=== PATIENT | female | born 1965 | race American Indian/Alaskan Native ===

== ENCOUNTER 2017-10-16 12:19 | Inpatient (IN) | payer MEDICARE, MEDICAID ==
--- NOTE | 2017-10-16 13:27 | C.PDOC ---
History Of Present Illness 52 y/o female presents to the ED requesting detox for heroin. She insuflates a bundle (10 bags) per day when she can afford it. She also admits that she smokes cocaine, marijuana, and 1 pack of cigarettes every 2 weeks. Patient has a past medical history of bipolar disorder and schizophrenia, and reports compliance with taking her Risperdal and Seroquel. She denies any suicidal ideation, homicidal ideation, or hallucinations. Time Seen by Provider: 10/16/17 13:18 Chief Complaint (Nursing): Substance Abuse History Per: Patient History/Exam Limitations: no limitations Onset/Duration Of Symptoms: Days Current Symptoms Are (Timing): Still Present Past Medical History Reviewed: Historical Data, Nursing Documentation, Vital Signs Vital Signs: Last Vital Signs Temp 98.8 F 10/16/17 16:32 Pulse 78 10/16/17 16:32 Resp 18 10/16/17 16:32 BP 150/88 10/16/17 16:32 Pulse Ox 100 10/16/17 16:32 - Medical History PMH: Bipolar Disorder, HTN, Schizophrenia Surgical History: Family History: States: No Known Family Hx - Social History Hx Alcohol Use: Yes Hx Substance Use: Yes - Immunization History Hx Tetanus Toxoid Vaccination: No Hx Influenza Vaccination: No Hx Pneumococcal Vaccination: No Review Of Systems Except As Marked, All Systems Reviewed And Found Negative. Constitutional: Positive for: Other (substance abuse). Negative for: Fever, Chills, Weakness, Malaise Eyes: Negative for: Vision Change, Conjunctivae Inflammation ENT: Negative for: Nose Pain Cardiovascular: Negative for: Chest Pain, Palpitations, Orthopnea, Paroxysmal Noc. Dyspnea Respiratory: Negative for: Shortness of Breath Gastrointestinal: Negative for: Nausea, Vomiting, Abdominal Pain Genitourinary: Negative for: Dysuria, Frequency, Incontinence Musculoskeletal: Negative for: Neck Pain, Shoulder Pain Neurological: Negative for: Weakness, Seizures, Dizziness, Other (tremors) Psych: Negative for: Suicidal ideation (or homicidal), Other (hallucinations) Physical Exam - Physical Exam Appears: Non-toxic, No Acute Distress Skin: Normal Color, Warm, Dry Head: Atraumatic, Normacephalic Eye(s): bilateral: Normal Inspection, PERRL, EOMI Oral Mucosa: Moist Tongue: Normal Appearing Lips: Normal Appearing Teeth: No Normal Dentition (poor dentition) Neck: Normal ROM, Supple Chest: Symmetrical Cardiovascular: Rhythm Regular, No Murmur Respiratory: Normal Breath Sounds, No Accessory Muscle Use Gastrointestinal/Abdominal: Soft, No Tenderness, No Distention Back: Normal Inspection Extremity: Bilateral: Atraumatic, Normal Color And Temperature, Normal ROM Neurological/Psych: Oriented x3, Normal Speech ED Course And Treatment - Laboratory Results Result Diagrams: 10/16/17 13:29 10/16/17 13:29 O2 Sat by Pulse Oximetry: 98 (RA) Pulse Ox Interpretation: Normal Medical Decision Making Medical Decision Making: Initial Plan: Patient was prescreened for detox. Ordered blood work and urine. Labs reviewed: U tox shows (+) opiates and cannibinoids Disposition Counseled Patient/Family Regarding: Diagnosis - Disposition Disposition: HOSPITALIZED Disposition Time: 16:38 Condition: GOOD - Clinical Impression Clinical Impression: Drug dependence - Scribe Statement The provider has reviewed the documentation as recorded by the Scribe (Sarah Sidhu) Provider Attestation: All medical record entries made by the Scribe were at my direction and personally dictated by me. I have reviewed the chart and agree that the record accurately reflects my personal performance of the history, physical exam, medical decision making, and the department course for this patient. I have also personally directed, reviewed, and agree with the discharge instructions and disposition.
[2017-10-16 13:33] LABS: HEMOGLOBIN 12.2 g/dL (11.0-16.0); MEAN CELL VOLUME 93.3 fL (81.0-99.0); MEAN CORPUSCULAR HEMOGLOBIN 31.9 pg (27.0-31.0); MEAN CORPUSCULAR HGB CONC 34.2 g/dL (33.0-37.0); MEAN PLATELET VOLUME 7.9 fL (7.2-11.7); RBC 3.83 Mil/uL (3.80-5.20); RED CELL DISTRIBUTION WIDTH 13.6 % (11.5-14.5); WHITE BLOOD COUNT 5.8 K/uL (4.8-10.8)
[2017-10-16 13:39] LABS: SQUAMOUS EPITHIAL 1 /hpf (0-5); URINE BACTERIA RARE (<OCC); URINE BILIRUBIN NEGATIVE (NEGATIVE); URINE BLOOD NEGATIVE (NEGATIVE); URINE CLARITY Clear (Clear); URINE COLOR Yellow (YELLOW); URINE GLUCOSE (UA) NORMAL (Normal); URINE LEUKOCYTE ESTERASE NEG Leu/uL (Negative); URINE PROTEIN NEGATIVE (NEGATIVE)
[2017-10-16 13:45] LABS: ALB/GLOB RATIO 1.1 (1.0-2.1); ALBUMIN 3.8 g/dL (3.5-5.0); ALT/SGPT 20 U/L (9-52); AST/SGOT 22 U/L (14-36); BLOOD UREA NITROGEN 15 mg/dL (7-17); CALCIUM 9.1 mg/dl (8.6-10.4); GFR AFRICAN-AMERICAN > 60; GFR NON-AFRICAN AMERICAN > 60
[2017-10-16 14:05] LABS: BARBITURATES, UR NEGATIVE (NEGATIVE); BENZODIAZEPINES, UR NEGATIVE (NEGATIVE); PHENCYCLIDINE, UR NEGATIVE (NEGATIVE)
[2017-10-16 14:48] LABS: OPIATES, UR POSITIVE (NEGATIVE)
--- NOTE | 2017-10-16 16:30 | PCM.BM ---
<Jw Feliz - Last Filed: 10/16/17 16:28> Treatment Plan Problems - Problems identified on initial assessmt potential for opiate withdrawal Date Initiated: 10/16/17 Time Initiated: 16:29 Status: Active Treatment assets and liabiliti Patient Assests: cooperative, ADL independent, cognitively intact Patient Liabilities: substance abuse, medical problems - Milieu Protocol Maintain good personal hygiene: daily Encourage regular showers, daily Remind patient to perform daily oral care, daily Assist patient to perform ADL's Conduct patient checks and document Observation sheet: Q15 minutes Maintain personal safety: every shift Educate patient to report safety concerns to staff, every shift Monitor environment for contraband/sharps Medication safety: Monitor for expected outcome, potential side effects: every shift, Assess barriers to learning: every shift, Assess readiness for medication education: every shift <Jose Juan Hernandez - Last Filed: 10/17/17 22:09> - Diagnosis (1) Opioid use disorder, severe, dependence Status: Acute Interventions: 10/17/17 22:09 * Assess 7x/week regarding severity of withdrawal * Educate regarding risks, benefits, side effects and alternatives of medications * Use Motivational Interviewing for abstinence * Use CBT for relapse prevention * Medication management for withdrawal symptoms * Encourage medication assisted treatment *
[2017-10-16] MEDS ORDERED: Aluminum Hydroxide/Magnesium Hydroxide Susp (30 mL) PO PRN (17:35)
[2017-10-17] MEDS ORDERED: Buprenorphine Hydrochloride 2 mg SL ONE ×2 (12:15→13:00)
--- NOTE | 2017-10-17 12:27 | PCM.PSYCH ---
Initial Psychiatric Evaluation - Initial Psychiatric Evaluation Type of Admission: Voluntary Legal Status: Capacity Chief Complaint (in patient's own words): "I need help again" History of Present Illness and Precipitating Events: The patient is seen, chart reviewed and case discussed. This is a 52-year-old -[place] female, , has 10 children but one . She is on SSI and lives with friends. The patient is using 10 bags of heroin intranasally and she started 20 years ago ago. She also smokes marijuana and smokes cigarettes. She was in detox and rehabilitation about 20 years ago so this is her first treatment recently. [place] [facility] [place] and thus she only used for a short time , this time. However, she still has withdrawal symptoms. Past psych history: She was diagnosed with bipolar disorder and takes Risperdal , Seroquel for sleep. She has had multiple admissions, but again, they were all many years ago, until this last admission. She says she was depressed but did not attempt suicide. Currently, she has no manic or psychotic symptoms and she is free of suicidal or homicidal ideation. Family psych history: Unknown Medical history: Hypertension and asthma. Current Medications: Active Medications Generic Name Dose Route Start Last Admin Trade Name Freq PRN Reason Stop Dose Admin Al Hydrox/Mg Hydrox/Simethicone 30 ml 10/16/17 17:35 Maalox 30 Ml PO TID PRN Indigestion / Heartburn Buprenorphine HCl 4 mg 10/17/17 13:00 Subutex SL 10/17/17 13:01 ONCE ONE Clonidine HCl 0.1 mg 10/17/17 11:13 10/17/17 12:11 Catapres PO 0.1 mg Q4H PRN Administration COWS Score More or Equal to 5 Hydroxyzine HCl 25 mg 10/16/17 17:38 Atarax PO Q4H PRN Anxiety Ibuprofen 400 mg 10/16/17 17:38 Motrin Tab PO Q4H PRN Pain, moderate (4-7) Loperamide HCl 2 mg 10/16/17 17:35 Imodium PO Q8 PRN Diarrhea Ondansetron HCl 4 mg 10/16/17 17:35 Zofran Tab PO Q8 PRN Nausea/Vomiting Quetiapine Fumarate 50 mg 10/16/17 22:00 10/16/17 21:25 Seroquel PO 50 mg HS ELLY Administration Trazodone HCl 50 mg 10/16/17 17:39 Desyrel PO HS PRN Insomnia Past Psychiatric History - Past Psychiatric History Previous Treatment History: Inpatient Pertinent Medical Hx (Current Medical&Sleep Prob, Allergies): Allergies Allergy/AdvReac Type Severity Reaction Status Date / Time Penicillins Allergy Intermediate URTICARIA Verified 10/16/17 12:29 Hydroxyzine Pamoate 50 mg PO DAILY 10/16/17 Quetiapine Fumarate [Seroquel] 50 mg PO DAILY 10/16/17 Risperidone 2 mg PO DAILY 10/16/17 cloNIDine [Catapres] 0.3 mg PO TID 10/16/17 Review of Systems - Psychiatric Psychiatric: Abnormal Sleep Pattern, Anxiety, Difficulty Concentrating. absent : Hallucinations, Homicidal Ideation, Paranoia, Suicidal Ideation Mental Status Examination - Personal Presentation Personal Presentation: Looks older than stated age - Affect Affect: Constricted - Motor Activity Motor Activity: Calm - Reliability in Providing Information Reliability in Providing Information: Good - Speech Speech: Organized - Mood Mood: Anxious - Formal Thought Process Formal Thought Process: No Impairment - Cognitive Functions Orientation: Person, Place, Situation, Time Sensorium: Alert Attention/Concentration: Attentive Estimate of Intelligence: Average Judgement: Intact, as evidence by: Insight regarding need for hospitalization Memory: Recent intact, as evidence by: Ability to recall events of the day, Remote intact, as evidenced by: Abilit to recall sig. life events - Risk Risk: Withdrawal, Diminished functioning - Strength & Assets Inventory Strength & Assets Inventory: Cooperative - Limitations Limitations: Other DSM 5 DX - DSM 5 DSM 5 Diagnosis: Opioid withdrawal Opioid use disorder, severe Bipolar disorder type I Cannabis use disorder, moderate Tobacco use disorder, severe Hypertension Asthma - Recommended/Plan of Treatment Treatment Recommendations and Plan of Treatment: Taper with subutex Risperdal 2 mg for bipolar d/o maintenance Norvasc for HTN Consult if needed As needed medications All risks, benefits and alternatives of the meds discussed, and the pt agreed and understood. Attend groups and activities Supportive therapy and psychoeducation MD for abstinence CBT for relapse prevention Encourage MAT Refer to rehab or IOP, and self-help groups Smoking cessation with MD Nicotine patch if needed 34 min Projected ELOS: 3 days Prognosis: good - Smoking Cessation Smoking Cessation Initiated: Yes
[2017-10-18] MEDS: guaiFENesin DM 200 mg-20 mg/10 ml UD PO PRN ×4 (08:05→21:23)
[2017-10-18] MEDS: Benzocaine/Menthol (Cepacol) Lozenge PO PRN ×3 (08:06→18:20)
--- NOTE | 2017-10-18 08:55 | PCM.PYCHPN ---
Psychiatric Progress Note - Psychiatric Progress Note Patient seen today, length of contact: 17 min Patient Chief Complaint: "I am better" Problems Identified/Issues Discussed: The pt is seen, chart reviewed, case discussed with staff. The pt is compliant with medications and reports no side-effects. Symptoms are improving but needs more time to stabilize. After care discussed, support and psychoeducation given. She agrees to go to t a rehab, she is very excited and happy about that. Medication Change: Yes (detox changes daily) Medical Record Reviewed: Yes Mental Status Examination - Cognitive Function Orientation: Person, Place, Situation, Time Memory: Impaired Attention: WNL Concentration: Poor Association: WNL Fund of Knowledge: Poor - Mood Mood: Anxious - Affect Affect: Constricted - Speech Speech: Appropriate - Formal Thought Process Formal Thought Process: No Impairment - Suicidal Ideation Suicidal Ideation: No - Homicidal Ideation Homicidal Ideation: No Goal/Treatment Plan - Goal/Treatment Plan Need for Continued Stay: Discharge may exacerbated symptoms, Severe functional impairment Progress Toward Problem(s) and Goals/Treatment Plan: Taper with subutex Risperdal 2 mg for bipolar d/o maintenance Norvasc for HTN Consult if needed As needed medications All risks, benefits and alternatives of the meds discussed, and the pt agreed and understood. Attend groups and activities Supportive therapy and psychoeducation NC for abstinence CBT for relapse prevention Encourage MAT Refer to rehab or IOP, and self-help groups Smoking cessation with NC Nicotine patch if needed
[2017-10-18] MEDS ORDERED: Buprenorphine Hydrochloride 2 mg SL ONE (10:00)
--- NOTE | 2017-10-18 12:52 | RAD ---
HISTORY: rehab COMPARISON: No prior. TECHNIQUE: Chest PA and lateral FINDINGS: LUNGS: No active pulmonary disease. PLEURA: No significant pleural effusion identified. No pneumothorax apparent. CARDIOVASCULAR: Normal. OSSEOUS STRUCTURES: No significant abnormalities. VISUALIZED UPPER ABDOMEN: Normal. OTHER FINDINGS: None. IMPRESSION: No acute cardiopulmonary disease appreciated.
[2017-10-19] MEDS: guaiFENesin DM 200 mg-20 mg/10 ml UD PO PRN (08:27)
[2017-10-19] MEDS: Benzocaine/Menthol (Cepacol) Lozenge PO PRN (08:28)
--- NOTE | 2017-10-19 08:38 | PCM.PYCHDC ---
Mental Status Examination - Mental Status Examination Orientation: Person, Place, Situation, Time Memory: Impaired Mood: Anxious Affect: Constricted Speech: Slurred Attention: WNL Concentration: Poor Association: WNL Fund of Knowledge: Poor Formal Thought Process: No Impairment Suicidal Ideation: No Current Homicidal Ideation?: No Discharge Summary - Discharge Note Reason for Hospitalization: Opioid detox Consultations:: List each consultation separately and include: 1. Reason for request. 2. Findings. 3. Follow-up Summary of Hospital Course include:: 1. Description of specific treatment plan utilized for patients during their course of treatmen. 2. Summarize the time- course for resolution of acute symptoms and/or regressed behaviors. 3. Describe issues identified and worked on during hospitalization. 4. Describe medication utilized. 5. Describe medical problems identified and treated. 6. Reassessment of suicide risk Summary of Hospital Course: The patient is seen, chart reviewed and case discussed. On admission: This is a 52-year-old -[place] female, , has 10 children but one . She is on SSI and lives with friends. The patient is using 10 bags of heroin intranasally and she started 20 years ago ago. She also smokes marijuana and smokes cigarettes. She was in detox and rehabilitation about 20 years ago so this is her first treatment recently. She wasn't [facility] [place] reasons and thus she only used for a short time , this time. However, she still has withdrawal symptoms. Past psych history: She was diagnosed with bipolar disorder and takes Risperdal , Seroquel for sleep. She has had multiple admissions, but again, they were all many years ago, until this last admission. She says she was depressed but did not attempt suicide. Currently, she has no manic or psychotic symptoms and she is free of suicidal or homicidal ideation. Family psych history: Unknown Medical history: Hypertension and asthma. Hospital course: The pt was admitted and started on treatment with psychotherapy, support, psychoeducation and medications. MD and CBT used. The pt attended groups and activities, as well as milieu therapy. All the risks and benefits of medications are discussed and the patient understood and agreed. The pt improved with the treatments provided. After care discussed with the patient. She will go to [facility] rehab in [place] - Final Diagnosis (DSM 5) Condition upon Discharge: GOOD DSM 5: Opioid withdrawal Opioid use disorder, severe Bipolar disorder type I Cannabis use disorder, moderate Tobacco use disorder, severe Hypertension Asthma Disposition: REHAB FACILITY/REHAB UNIT Follow-up Treatment Plan: Continue below medications after discharge. (Meds entered twice due to an EMR glitch. She only got one set of 30-day supply) Follow after care plan as discussed. Use relapse prevention skills Return to ER or call 911 if suicidal, homicidal or symptoms relapse. Stay away from stress, alcohol and drugs. See primary doctor regularly and get labs. Prescriptions/Medication Reconciliation: amLODIPine [Norvasc] 5 mg PO DAILY #30 tab amLODIPine [Norvasc] 5 mg PO DAILY #30 tab risperiDONE [RisperDAL Tab] 2 mg PO HS #30 tab risperiDONE [RisperDAL Tab] 2 mg PO HS #30 tab traZODone [Desyrel] 100 mg PO HS PRN #30 tab PRN Reason: Insomnia traZODone [Desyrel] 100 mg PO HS #30 tab
[2017-10-19] MEDS ORDERED: Buprenorphine Hydrochloride 2 mg SL ONE (10:00)
[2017-10-19 12:56] VITALS: BP 139/83; PULSE 87; RESP 20; TEMP 98.1
[2017-10-19 13:16] VITALS: O2SAT 97
== END 2017-10-19 15:10 | DRG 895 ==
LOC: C.ER 12:19 → C.7D 15:58
PROVIDERS: ADMIT Psychiatry & Neurology Psychiatry; ATTEND Psychiatry & Neurology Psychiatry
PROC: HZ2ZZZZ Detoxification Services for Substance Abuse Treatment (ICD-10-PCS; principal; 2017-10-16)
PROC: HZ46ZZZ Group Counseling for Substance Abuse Treatment, Psychoeducation (ICD-10-PCS; 2017-10-16)
DX: F11.23 Opioid dependence with withdrawal (principal); F12.20 Cannabis dependence, uncomplicated; F14.90 Cocaine use, unspecified, uncomplicated; F17.210 Nicotine dependence, cigarettes, uncomplicated; F20.9 Schizophrenia, unspecified; F31.9 Bipolar disorder, unspecified; I10 Essential (primary) hypertension; J45.909 Unspecified asthma, uncomplicated; Z79.899 Other long term (current) drug therapy

== ENCOUNTER 2017-10-25 18:15 | Inpatient (IN) | payer MEDICARE, MEDICAID ==
--- NOTE | 2017-10-25 19:21 | C.PDOC ---
History Of Present Illness <Korina Brown - Last Filed: 10/25/17 23:10> <Candi Oconnor - Last Filed: 10/25/17 23:36> 52 y/o female with PMH bipolar and schizophrenia presents to the ED requesting detox for heroin, last use this morning. She also admits that she smokes marijuana and cigarettes. "If i cant have detox, I want to stay in psych." Recent admission for detox two weeks ago. She denies any suicidal ideation, homicidal ideation, or hallucinations. (Korina Brown) History Per: Patient History/Exam Limitations: no limitations Onset/Duration Of Symptoms: Persistent Current Symptoms Are (Timing): Still Present <Korina Brown - Last Filed: 10/25/17 23:10> <Candi Oconnor - Last Filed: 10/25/17 23:36> Time Seen by Provider: 10/25/17 19:13 Chief Complaint (Nursing): Substance Abuse Past Medical History - Medical History PMH: Asthma, Bipolar Disorder, HTN, Schizophrenia Denies: HIV Surgical History: Family History: States: Unknown Family Hx - Social History Hx Alcohol Use: Yes Hx Substance Use: No - Immunization History Hx Tetanus Toxoid Vaccination: No Hx Influenza Vaccination: No Hx Pneumococcal Vaccination: No <KevinKorina - Last Filed: 10/25/17 23:10> Vital Signs: Last Vital Signs Temp 99.1 F 10/25/17 23:00 Pulse 76 10/25/17 23:00 Resp 20 10/25/17 23:00 BP 128/81 10/25/17 23:00 Pulse Ox 99 10/25/17 23:11 - [facility] Procedures DETOXIFICATION SERVICES FOR SUBSTANCE ABUSE TREATMENT (10/16/17) GROUP MACHINE PULLER AND LASTER FOR SUBSTANCE ABUSE TREATMENT, PSYCHOEDUCATION (10/16/17) Review Of Systems Except As Marked, All Systems Reviewed And Found Negative. <Korina Brown - Last Filed: 10/25/17 23:10> Physical Exam - Physical Exam Appears: Well, Non-toxic, No Acute Distress Skin: Normal Color, Warm, Dry Head: Atraumatic, Normacephalic Eye(s): bilateral: Normal Inspection, EOMI Nose: Normal Oral Mucosa: Moist Chest: Symmetrical Respiratory: No Accessory Muscle Use, Other (speaking in full sentences) Extremity: Bilateral: Atraumatic, Normal Color And Temperature, Normal ROM Neurological/Psych: Oriented x3, Normal Speech, Other (no focal deficits) Gait: Steady <Korina Brown - Last Filed: 10/25/17 23:10> ED Course And Treatment - Laboratory Results Result Diagrams: 10/25/17 21:00 10/25/17 21:00 O2 Sat by Pulse Oximetry: 99 (RA) Pulse Ox Interpretation: Normal Progress Note: Patient seen and evaluated by licensed master social worker, who will discuss w/ call circuit worker. contact worker lithography evaluated patient, and discussed w/ Dr. Ayala, who recommends keeping patient overnight and reevaluating in the morning. <Korina Brown - Last Filed: 10/25/17 23:10> - Laboratory Results Result Diagrams: 10/25/17 21:00 10/25/17 21:00 <Candi Oconnor - Last Filed: 10/25/17 23:36> Disposition - Disposition Disposition Time: 19:20 <Korina Brown - Last Filed: 10/25/17 23:10> Discussed With DrVenessa: Wendy Ayala Comment: accepted the patient on her service and took over the care at 11:34 PM Doctor Will See Patient In The: Hospital Counseled Patient/Family Regarding: Studies Performed, Diagnosis <Candi Oconnor - Last Filed: 10/25/17 23:36> - Disposition Disposition: HOSPITALIZED Condition: FAIR Additional Instructions: Call [phone] for bed availability. Return to ER if symptoms persist or worsen. Instructions: Opioid Use Disorder Forms: [employer] (Emirati) - Clinical Impression Clinical Impression: Major depression, Polysubstance abuse
[2017-10-25 21:15] LABS: BASO % 0.6 % (0.0-2.0); EOS % 0.6 % (0.0-4.0); HEMOGLOBIN 12.2 g/dL (11.0-16.0); LYMPH # 1.4 K/uL (1.0-4.3); LYMPH % 30.2 % (20.0-40.0); MEAN CELL VOLUME 92.9 fL (81.0-99.0); MEAN CORPUSCULAR HGB CONC 34.5 g/dL (33.0-37.0); MEAN PLATELET VOLUME 7.8 fL (7.2-11.7); MONO # 0.5 K/uL (0.0-0.8); MONO % 11.1 % (0.0-10.0); NEUT # 2.7 K/uL (1.8-7.0); NEUT % 57.5 % (50.0-75.0); NRBC % 0.1 % (0.0-2.0); RBC 3.79 Mil/uL (3.80-5.20); RED CELL DISTRIBUTION WIDTH 13.4 % (11.5-14.5); WHITE BLOOD COUNT 4.6 K/uL (4.8-10.8)
[2017-10-25 21:16] LABS: HCG,QUALITATIVE URINE NEGATIVE (NEGATIVE)
[2017-10-25 21:18] LABS: SQUAMOUS EPITHIAL 25 /hpf (0-5); URINE BILIRUBIN 2+ (NEGATIVE); URINE BLOOD NEGATIVE (NEGATIVE); URINE CLARITY Hazy (Clear); URINE COLOR Amber (YELLOW); URINE GLUCOSE (UA) NORMAL (Normal); URINE LEUKOCYTE ESTERASE TRACE Leu/uL (Negative); URINE PROTEIN 2+ mg/dL (NEGATIVE)
[2017-10-25 21:28] LABS: ALB/GLOB RATIO 1.2 (1.0-2.1); ALBUMIN 3.9 g/dL (3.5-5.0); ALT/SGPT 19 U/L (9-52); AST/SGOT 24 U/L (14-36); BLOOD UREA NITROGEN 16 mg/dL (7-17); CALCIUM 9.2 mg/dl (8.6-10.4); GFR AFRICAN-AMERICAN > 60; GFR NON-AFRICAN AMERICAN > 60
[2017-10-25 21:39] LABS: BARBITURATES, UR NEGATIVE (NEGATIVE); BENZODIAZEPINES, UR NEGATIVE (NEGATIVE); PHENCYCLIDINE, UR NEGATIVE (NEGATIVE)
[2017-10-25 21:43] LABS: OPIATES, UR POSITIVE (NEGATIVE)
--- NOTE | 2017-10-26 00:45 | PCM.BM ---
<Rosalina Wyatt - Last Filed: 10/26/17 00:43> Treatment Plan Problems - Problems identified on initial assessmt Depression Date Initiated: 10/26/17 Time Initiated: 00:05 Assessment reference: NA Status: Active Treatment assets and liabiliti Patient Assests: cooperative, ADL independent, negotiates basic needs, cognitively intact Patient Liabilities: live alone, substance abuse - Milieu Protocol Maintain good personal hygiene: daily Encourage regular showers, daily Remind patient to perform daily oral care, daily Assist patient to perform ADL's Maintain personal safety: every shift Educate patient to report safety concerns to staff, every shift Monitor environment for contraband/sharps Medication safety: Monitor for expected outcome, potential side effects: every shift, Assess barriers to learning: every shift, Assess readiness for medication education: every shift <Rocio Valdes - Last Filed: 10/29/17 11:13> - Diagnosis (1) Bipolar disorder with psychotic features Status: Acute Interventions: 10/29/17 11:15 * Assess/adjust medications daily and /or as needed * See patient on an individual basis 7x/week to assess level of manic behaviors and stability * Discuss risks, benefits, side effects and alternatives of medications * (2) Opioid use disorder, severe, dependence Status: Acute Interventions: 10/29/17 11:15 * Assess 7x/week regarding severity of withdrawal * Educate regarding risks, benefits, side effects and alternatives of medications * Use Motivational Interviewing for abstinence * Use CBT for relapse prevention * Medication management for withdrawal symptoms * Encourage medication assisted treatment * <Kiersten Rivas - Last Filed: 10/29/17 16:25> Family Contact Family involvement: Patient does not wish Family/SO involvement Family contact: Patient declines to allow family contact at present - Goals for Treatment Patient goals for treatment: "I want to go to a rehab program." Discharge/Continuing Care - Education Needs Education Needs: Patient Medication, Patient Diagnosis/Disease Process, Patient Coping Skills, Patient Placement options, Patient Community resources - Discharge Discharge Criteria: Normal sleep pattern, Ability to care for self, No longer exhibiting s/s of withdrawal, Reduction of target symptoms Discharge to:: Substance Abuse Rehab - Treatment Team Participation Discussed with Family/SO: No Was Patient/Family/SO present at Treatment Team Meeting: Yes
--- NOTE | 2017-10-26 10:18 | PCM.PSYCH ---
Initial Psychiatric Evaluation - Initial Psychiatric Evaluation Type of Admission: Voluntary Legal Status: Capacity History of Present Illness and Precipitating Events: Patient is a 52 year old AAF, who lives alone, came to the hospital with depressed mood and detox. However, patient overheard nurses stating there was no beds available at Detox and she became suicidal, in the ED. She tried to strangle herself with her shirt and verbalized the she needed admission otherwise she will kill herself. Patient has a long history of bipolar disorder. She has been hospitalized more than 20 times in psychiatric units as well as detox. Pt reported she was last admitted at [facility] in 08/2017. However, collateral information from [facility] stated she was discharge lastly on 10/08/17 after being admitted for auditory hallucination with commands to hurt self and drug use. As per the patient soon after discharge, she stopped taking her medications and relapsed on heroin, cocaine and marijuana. She reports of abusing heroin 7-10 bags along with $50- 300 cocaine and 5-10 blunts marihuana daily. She reports history of 10+ attempts but is unable to provide timeframe. She also reports auditory hallucinations with commands to hurt self or others. She reports feeling paranoid and thinking people are out to get her and kills her. She reports highest level of education 8th grade, and is currently not working, she receives SSI/SSD. She reported depressed mood, irritability and agitation, poor sleep and poor appetite. PMH: None reported Current Medications: Active Medications Generic Name Dose Route Start Last Admin Trade Name Freq PRN Reason Stop Dose Admin Albuterol 1 puff 10/26/17 03:50 Ventolin Hfa 90 Mcg/Actuation (8 G) INH RQ6 PRN Shortness of Breath Amlodipine Besylate 5 mg 10/26/17 10:00 10/26/17 09:59 Norvasc PO 5 mg DAILY ELLY Administration Benztropine Mesylate 1 mg 10/25/17 23:50 Cogentin PO Q6H PRN EPS Clonidine HCl 0.1 mg 10/25/17 23:48 10/26/17 00:30 Catapres PO 0.1 mg Q8H PRN Administration opioid withdrawal Ibuprofen 400 mg 10/25/17 23:44 10/26/17 00:30 Motrin Tab PO 400 mg Q6 PRN Administration Pain, moderate (4-7) Loperamide HCl 2 mg 10/25/17 23:44 Imodium PO Q8 PRN Diarrhea Ondansetron HCl 2 mg 10/25/17 23:44 Zofran Tab PO Q8H PRN Nausea/Vomiting Risperidone 1 mg 10/26/17 10:00 10/26/17 09:59 Risperdal Tab PO 1 mg BID ELLY Administration Past Psychiatric History - Past Psychiatric History Previous Treatment History: Inpatient Pertinent Medical Hx (Current Medical&Sleep Prob, Allergies): Allergies Allergy/AdvReac Type Severity Reaction Status Date / Time Penicillins Allergy Intermediate URTICARIA Verified 10/16/17 12:29 Hydroxyzine Pamoate 50 mg PO DAILY 10/16/17 Quetiapine Fumarate [Seroquel] 50 mg PO DAILY 10/16/17 cloNIDine [Catapres] 0.3 mg PO TID 10/16/17 amLODIPine [Norvasc] 5 mg PO DAILY #30 tab 10/18/17 risperiDONE [RisperDAL Tab] 2 mg PO HS #30 tab 10/18/17 traZODone [Desyrel] 100 mg PO HS #30 tab 10/18/17 Review of Systems - Review of Systems All systems: reviewed and no additional remarkable complaints except - Psychiatric Psychiatric: Anxiety, Auditory Hallucinations, Irritability, Suicidal Ideation Mental Status Examination - Personal Presentation Personal Presentation: Looks stated age - Affect Affect: Constricted - Motor Activity Motor Activity: Calm - Reliability in Providing Information Reliability in Providing Information: Fair - Speech Speech: Organized - Mood Mood: Depressed, Anxious - Formal Thought Process Formal Thought Process: Hallucinations, Delusions, Paranoia, Loosening of associations - Hallucinations/Delusions Hallucinations: Auditory Delusions: Persecution - Obsessions/Compulsions Obsessions: No Compulsions: No - Cognitive Functions Orientation: Person, Place, Situation, Time Sensorium: Alert Attention/Concentration: Attentive Abstract Thinking: [place] Estimate of Intelligence: Below average Judgement: Imparied, as evidence by: Poor judgement, Imparied, as evidence by: Lack of insight into illness - Risk Risk: Suicidal, Withdrawal, Diminished functioning - Limitations Limitations: Living alone DSM 5 DX - DSM 5 DSM 5 Diagnosis: Bipolar disorder MRE depressed severe with psychotic features r/o Schizoaffective disorder bipolar type Opioid use disorder severe Opioid withdrawal Cannabis use disorder severe Cocaine use disorder severe - Recommended/Plan of Treatment Treatment Recommendations and Plan of Treatment: Bipolar disorder MRE depressed severe with psychotic features r/o Schizoaffective disorder bipolar type CBT Psychoeducation Supportive therapy, group therapy, individual therapy Risperdal I am PO BID Seroquel 100 mg PO QHS Opioid use disorder severe CBT Psychoeducation Supportive therapy, individual therapy Use [place] for abstinence Opioid withdrawal CBT Psychoeducation Supportive therapy, individual therapy Clonidine when necessary Methadone taper Cannabis use disorder mild Monitor signs and symptoms Use [place] for abstinence Cocaine use disorder severe CBT Psychoeducation Supportive therapy, individual therapy Use [place] for abstinence
--- NOTE | 2017-10-27 12:28 | PCM.PYCHPN ---
Psychiatric Progress Note - Psychiatric Progress Note Patient seen today, length of contact: 15 min Patient Chief Complaint: I'm feeling depressed.' Problems Identified/Issues Discussed: Patient seen and evaluated, chart reviewed and discussed with the nurse. Pt still reports depressed mood and feelings of hopelessness and helplessness. She is on methadone taper and reports withdrawal symptoms including cramps, back pain and sweating she also reports some improvement in sleep. However she remained isolated and withdrawn. She is taking medications and denies any side effects Symptoms are improving but she needs more time for stabilization. Supportive therapy and psychoeducation were given. Medication Change: Yes Medical Record Reviewed: Yes Mental Status Examination - Cognitive Function Orientation: Person, Place, Situation, Time Memory: Intact Attention: WNL Concentration: Poor Association: WNL Fund of Knowledge: Poor - Mood Mood: Depressed, Anxious - Affect Affect: Constricted - Speech Speech: Soft - Formal Thought Process Formal Thought Process: Hallucinations, Delusions, Paranoia, Loosening of associations - Suicidal Ideation Suicidal Ideation: No - Homicidal Ideation Homicidal Ideation: No Goal/Treatment Plan - Goal/Treatment Plan Need for Continued Stay: Severe depression anxiety, Severe functional impairment Progress Toward Problem(s) and Goals/Treatment Plan: Bipolar disorder MRE depressed severe with psychotic features r/o Schizoaffective disorder bipolar type CBT Psychoeducation Supportive therapy, group therapy, individual therapy Risperdal I am PO BID Seroquel 100 mg PO QHS Opioid use disorder severe CBT Psychoeducation Supportive therapy, individual therapy Use [place] for abstinence Opioid withdrawal CBT Psychoeducation Supportive therapy, individual therapy Clonidine when necessary Methadone taper Cannabis use disorder mild Monitor signs and symptoms Use [place] for abstinence Cocaine use disorder severe CBT Psychoeducation Supportive therapy, individual therapy Use [place] for abstinence - Smoking Cessation Smoking Cessation Initiated: No
[2017-10-28 11:28] VITALS: O2SAT 98
--- NOTE | 2017-10-28 16:24 | PCM.PYCHPN ---
Psychiatric Progress Note - Psychiatric Progress Note Patient seen today, length of contact: 15 min Patient Chief Complaint: I am still withdrawing. Problems Identified/Issues Discussed: Patient seen and evaluated, chart reviewed and discussed with the nurse. Pt still reports depressed mood and feelings of hopelessness and helplessness. She is on methadone taper and reports withdrawal symptoms including cramps, back pain and sweating she also reports some improvement in sleep. However she remained isolated and withdrawn. She is taking medications and denies any side effects Symptoms are improving but she needs more time for stabilization. Supportive therapy and psychoeducation were given. Mental Status Examination - Cognitive Function Orientation: Person, Place, Situation, Time - Mood Mood: Depressed, Anxious - Affect Affect: Constricted - Formal Thought Process Formal Thought Process: Hallucinations, Delusions, Paranoia, Loosening of associations - Homicidal Ideation Homicidal Ideation: No Goal/Treatment Plan - Goal/Treatment Plan Progress Toward Problem(s) and Goals/Treatment Plan: Bipolar disorder MRE depressed severe with psychotic features r/o Schizoaffective disorder bipolar type CBT Psychoeducation Supportive therapy, group therapy, individual therapy Risperdal I am PO BID Seroquel 100 mg PO QHS Opioid use disorder severe CBT Psychoeducation Supportive therapy, individual therapy Use [place] for abstinence Opioid withdrawal CBT Psychoeducation Supportive therapy, individual therapy Clonidine when necessary Methadone taper Cannabis use disorder mild Monitor signs and symptoms Use [place] for abstinence Cocaine use disorder severe CBT Psychoeducation Supportive therapy, individual therapy Use [place] for abstinence
--- NOTE | 2017-10-29 14:16 | PCM.PYCHPN ---
Psychiatric Progress Note - Psychiatric Progress Note Patient seen today, length of contact: 15 mins Patient Chief Complaint: "I have pain in my hips" Problems Identified/Issues Discussed: Patient is seen and evaluated, chart reviewed, and discussed with nurse. Patient is feeling better today and states better mood than yesterday. She also reports better sleep and appetite compared to yesterday. Patient does no report withdrawal symptoms. Denies suicidal ideations. Denies auditory, visual, tactile hallucinations. Patient is interested in going to rehab. Patient states she continues to have hip pain but says it is a chronic issue. She is taking medications and denies any side effects. Symptoms are improving overall. Supportive therapy and psychoeducation were given. After case discussed. Medication Change: Yes Medical Record Reviewed: Yes Mental Status Examination - Cognitive Function Orientation: Person, Place, Situation, Time Memory: Intact Attention: WNL Concentration: Poor Association: WNL - Mood Mood: Depressed, Anxious - Affect Affect: Broad - Speech Speech: Appropriate, Soft - Formal Thought Process Formal Thought Process: No Impairment - Suicidal Ideation Suicidal Ideation: No - Homicidal Ideation Homicidal Ideation: No Goal/Treatment Plan - Goal/Treatment Plan Need for Continued Stay: Discharge may exacerbated symptoms, Severe functional impairment Progress Toward Problem(s) and Goals/Treatment Plan: Bipolar disorder MRE depressed severe with psychotic features r/o Schizoaffective disorder bipolar type CBT Psychoeducation Supportive therapy, group therapy, individual therapy Risperdal 1 mg PO BID Seroquel 100 mg PO QHS Gabapentin 100 mg PO TID Opioid use disorder severe CBT Psychoeducation Supportive therapy, individual therapy Use [place] for abstinence Opioid withdrawal CBT Psychoeducation Supportive therapy, individual therapy Clonidine when necessary Methadone taper Cannabis use disorder mild Monitor signs and symptoms Use [place] for abstinence Cocaine use disorder severe CBT Psychoeducation Supportive therapy, individual therapy Use [place] for abstinence - Smoking Cessation Smoking Cessation Initiated: No
[2017-10-29] MEDS: Albuterol HFA 90 mcg/actuation (8 g) INH PRN (19:12)
--- NOTE | 2017-10-30 12:27 | PCM.PYCHPN ---
Psychiatric Progress Note - Psychiatric Progress Note Patient seen today, length of contact: 15 min Patient Chief Complaint: I am feeling better.'. Problems Identified/Issues Discussed: Patient is seen and evaluated, chart reviewed, and discussed with nurse. Patient is feeling better today and states better mood than yesterday. She also reports better sleep and appetite compared to yesterday. Patient does no report withdrawal symptoms. Denies suicidal ideations. Denies auditory, visual, tactile hallucinations. Patient is interested in going to rehab. Patient states she continues to have hip pain but says it is a chronic issue. She is taking medications and denies any side effects. Symptoms are improving overall. Supportive therapy and psychoeducation were given. After case discussed. Medication Change: Yes Medical Record Reviewed: Yes Mental Status Examination - Cognitive Function Orientation: Person, Place, Situation, Time Memory: Intact Attention: WNL Concentration: Poor Association: WNL Fund of Knowledge: Poor - Mood Mood: Depressed, Anxious - Affect Affect: Constricted - Speech Speech: Soft - Formal Thought Process Formal Thought Process: No Impairment - Suicidal Ideation Suicidal Ideation: No - Homicidal Ideation Homicidal Ideation: No Goal/Treatment Plan - Goal/Treatment Plan Need for Continued Stay: Severe depression anxiety, Severe functional impairment Progress Toward Problem(s) and Goals/Treatment Plan: Bipolar disorder MRE depressed severe with psychotic features r/o Schizoaffective disorder bipolar type CBT Psychoeducation Supportive therapy, group therapy, individual therapy Risperdal 1 mg PO BID Seroquel 100 mg PO QHS Gabapentin 100 mg PO TID Opioid use disorder severe CBT Psychoeducation Supportive therapy, individual therapy Use [place] for abstinence Opioid withdrawal CBT Psychoeducation Supportive therapy, individual therapy Clonidine when necessary Methadone taper Cannabis use disorder mild Monitor signs and symptoms Use [place] for abstinence Cocaine use disorder severe CBT Psychoeducation Supportive therapy, individual therapy Use [place] for abstinence - Smoking Cessation Smoking Cessation Initiated: No
[2017-10-30] MEDS ORDERED: Magnesium Hydroxide Susp 30 ml UD PO ONE (20:21)
--- NOTE | 2017-10-31 14:36 | PCM.PYCHPN ---
Psychiatric Progress Note - Psychiatric Progress Note Patient seen today, length of contact: 15 min Patient Chief Complaint: I am feeling better today. Problems Identified/Issues Discussed: Patient is seen and evaluated, chart reviewed, and discussed with nurse. Patient is feeling better today and states better mood than yesterday. She also reports better sleep and appetite compared to yesterday. Patient does not report withdrawal symptoms. Denies suicidal ideations. Patient complains of intermittent leg pain. 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 Patient continues to go to group activities. Patient is aware she is being discharged on Sunday. She is taking medications and denies any side effects. Supportive therapy and psychoeducation were given. After care discussed. . Medication Change: Yes Medical Record Reviewed: Yes Mental Status Examination - Cognitive Function Orientation: Person, Place, Situation, Time Attention: WNL Concentration: WNL - Mood Mood: Anxious - Affect Affect: Constricted - Speech Speech: Soft - Formal Thought Process Formal Thought Process: Paranoia - Suicidal Ideation Suicidal Ideation: No - Homicidal Ideation Homicidal Ideation: No Goal/Treatment Plan - Goal/Treatment Plan Need for Continued Stay: Severe depression anxiety, Severe functional impairment Progress Toward Problem(s) and Goals/Treatment Plan: Bipolar disorder MRE depressed severe with psychotic features r/o Schizoaffective disorder bipolar type CBT Psychoeducation Supportive therapy, group therapy, individual therapy Risperdal I am PO BID Seroquel 100 mg PO QHS Opioid use disorder severe CBT Psychoeducation Supportive therapy, individual therapy Use [place] for abstinence Opioid withdrawal CBT Psychoeducation Supportive therapy, individual therapy Clonidine when necessary Methadone taper Cannabis use disorder mild Monitor signs and symptoms Use [place] for abstinence Cocaine use disorder severe CBT Psychoeducation Supportive therapy, individual therapy Use [place] for abstinence
[2017-10-31] MEDS: Albuterol HFA 90 mcg/actuation (8 g) INH PRN (17:50)
[2017-11-01] MEDS ORDERED: Aluminum Hydroxide/Magnesium Hydroxide Susp (30 mL) PO PRN (11:45)
[2017-11-02 06:25] VITALS: BP 129/75; PULSE 83; RESP 20; TEMP 98.3
--- NOTE | 2017-11-02 09:55 | PCM.PYCHPN ---
Psychiatric Progress Note - Psychiatric Progress Note Patient seen today, length of contact: 15 min Patient Chief Complaint: I am feeling better.'. Problems Identified/Issues Discussed: Patient is seen and evaluated, chart reviewed, and discussed with nurse. Patient is feeling better today and states better mood than yesterday. She also reports better sleep and appetite compared to yesterday. Patient does no report withdrawal symptoms. Denies suicidal ideations. Denies auditory, visual, tactile hallucinations. Patient is interested in going to rehab. Patient states she continues to have hip pain but says it is a chronic issue. She is taking medications and denies any side effects. Symptoms are improving overall. Supportive therapy and psychoeducation were given. After case discussed. Medication Change: Yes Medical Record Reviewed: Yes Mental Status Examination - Cognitive Function Orientation: Person, Place, Situation, Time Memory: Intact Attention: WNL Concentration: Poor Association: WNL Fund of Knowledge: Poor - Mood Mood: Depressed, Anxious - Affect Affect: Constricted - Speech Speech: Soft - Formal Thought Process Formal Thought Process: No Impairment - Suicidal Ideation Suicidal Ideation: No - Homicidal Ideation Homicidal Ideation: No Goal/Treatment Plan - Goal/Treatment Plan Need for Continued Stay: Severe depression anxiety, Severe functional impairment Progress Toward Problem(s) and Goals/Treatment Plan: Bipolar disorder MRE depressed severe with psychotic features r/o Schizoaffective disorder bipolar type CBT Psychoeducation Supportive therapy, group therapy, individual therapy Risperdal 1 mg PO BID Seroquel 100 mg PO QHS Gabapentin 100 mg PO TID Opioid use disorder severe CBT Psychoeducation Supportive therapy, individual therapy Use [place] for abstinence Opioid withdrawal CBT Psychoeducation Supportive therapy, individual therapy Clonidine when necessary Methadone taper Cannabis use disorder mild Monitor signs and symptoms Use [place] for abstinence Cocaine use disorder severe CBT Psychoeducation Supportive therapy, individual therapy Use [place] for abstinence
--- NOTE | 2017-11-02 09:59 | PCM.PYCHDC ---
Mental Status Examination - Mental Status Examination Orientation: Person, Place, Situation, Time Memory: Intact Mood: Neutral Affect: Constricted Speech: Soft Attention: WNL Concentration: WNL Association: WNL Fund of Knowledge: WNL Formal Thought Process: No Impairment Description of patient's judgement and insight: good, fair Psychotic Thoughts and Behaviors: Denies any AVH Suicidal Ideation: No Current Homicidal Ideation?: No Discharge Summary - Discharge Note Reason for Hospitalization: Patient is a 52 year old AAF, who lives alone, came to the hospital with depressed mood and detox. However, patient overheard nurses stating there was no beds available at [facility] and she became suicidal, in the ED. She tried to strangle herself with her shirt and verbalized the she needed admission otherwise she will kill herself. Patient has a long history of bipolar disorder. She has been hospitalized more than 20 times in psychiatric units as well as detox. Pt reported she was last admitted at [facility] in 08/2017. However, collateral information from [facility] stated she was discharge lastly on 10/08/17 after being admitted for auditory hallucination with commands to hurt self and drug use. As per the patient soon after discharge, she stopped taking her medications and relapsed on heroin, cocaine and marijuana. She reports of abusing heroin 7-10 bags along with $50- 300 cocaine and 5-10 blunts marihuana daily. She reports history of 10+ attempts but is unable to provide timeframe. She also reports auditory hallucinations with commands to hurt self or others. She reports feeling paranoid and thinking people are out to get her and kills her. She reports highest level of education 8th grade, and is currently not working, she receives SSI/SSD. She reported depressed mood, irritability and agitation, poor sleep and poor appetite. Consultations:: List each consultation separately and include: 1. Reason for request. 2. Findings. 3. Follow-up Summary of Hospital Course include:: 1. Description of specific treatment plan utilized for patients during their course of treatmen. 2. Summarize the time- course for resolution of acute symptoms and/or regressed behaviors. 3. Describe issues identified and worked on during hospitalization. 4. Describe medication utilized. 5. Describe medical problems identified and treated. 6. Reassessment of suicide risk Summary of Hospital Course: Patient is a 52 year old AAF, who lives alone, came to the hospital with depressed mood and detox. However, patient overheard nurses stating there was no beds available at [facility] and she became suicidal, in the ED. She tried to strangle herself with her shirt and verbalized the she needed admission otherwise she will kill herself. Patient has a long history of bipolar disorder. She has been hospitalized more than 20 times in psychiatric units as well as detox. Pt reported she was last admitted at [facility] in 08/2017. However, collateral information from [facility] stated she was discharge lastly on 10/08/17 after being admitted for auditory hallucination with commands to hurt self and drug use. As per the patient soon after discharge, she stopped taking her medications and relapsed on heroin, cocaine and marijuana. She reports of abusing heroin 7-10 bags along with $50- 300 cocaine and 5-10 blunts marihuana daily. She reports history of 10+ attempts but is unable to provide timeframe. She also reports auditory hallucinations with commands to hurt self or others. She reports feeling paranoid and thinking people are out to get her and kills her. She reports highest level of education 8th grade, and is currently not working, she receives SSI/SSD. She reported depressed mood, irritability and agitation, poor sleep and poor appetite. PMH: None reported - Diagnosis (1) Bipolar disorder with psychotic features Current Visit: Yes Status: Acute (2) Opioid use disorder, severe, dependence Current Visit: No Status: Acute - Final Diagnosis (DSM 5) Condition upon Discharge: FAIR Disposition: HOME/ ROUTINE Follow-up Treatment Plan: Bipolar disorder MRE depressed severe with psychotic features r/o Schizoaffective disorder bipolar type CBT Psychoeducation Supportive therapy, group therapy, individual therapy Risperdal 1 mg PO BID Seroquel 100 mg PO QHS Gabapentin 100 mg PO TID Opioid use disorder severe CBT Psychoeducation Supportive therapy, individual therapy Use [place] for abstinence Opioid withdrawal CBT Psychoeducation Supportive therapy, individual therapy Clonidine when necessary Methadone taper Cannabis use disorder mild Monitor signs and symptoms Use [place] for abstinence Cocaine use disorder severe CBT Psychoeducation Supportive therapy, individual therapy Use [place] for abstinence Prescriptions/Medication Reconciliation: Albuterol HFA [Ventolin HFA 90 mcg/actuation (8 g)] 1 puff INH RQ6 PRN #1 inhaler PRN Reason: Shortness Of Breath Benztropine [Cogentin] 0.5 mg PO BID #60 tab hydrOXYzine HCl [Atarax] 50 mg PO TID #90 tab risperiDONE [RisperDAL Tab] 1 mg PO BID #60 tab
== END 2017-11-02 10:35 | disposition home or self-care (01) | DRG 895 ==
LOC: C.ER 18:15 → C.5E 23:32
PROVIDERS: ADMIT Psychiatry & Neurology Psychiatry; ATTEND Psychiatry & Neurology Psychiatry
PROC: HZ52ZZZ Individual Psychotherapy for Substance Abuse Treatment, Cognitive-Behavioral (ICD-10-PCS; principal; 2017-10-25)
PROC: GZHZZZZ Group Psychotherapy (ICD-10-PCS; 2017-10-25)
PROC: GZ58ZZZ Individual Psychotherapy, Cognitive-Behavioral (ICD-10-PCS; 2017-10-25)
PROC: GZ56ZZZ Individual Psychotherapy, Supportive (ICD-10-PCS; 2017-10-25)
PROC: HZ2ZZZZ Detoxification Services for Substance Abuse Treatment (ICD-10-PCS; 2017-10-25)
PROC: HZ59ZZZ Individual Psychotherapy for Substance Abuse Treatment, Supportive (ICD-10-PCS; 2017-10-25)
PROC: HZ56ZZZ Individual Psychotherapy for Substance Abuse Treatment, Psychoeducation (ICD-10-PCS; 2017-10-25)
PROC: HZ42ZZZ Group Counseling for Substance Abuse Treatment, Cognitive-Behavioral (ICD-10-PCS; 2017-10-25)
PROC: HZ46ZZZ Group Counseling for Substance Abuse Treatment, Psychoeducation (ICD-10-PCS; 2017-10-25)
DX: F11.23 Opioid dependence with withdrawal (principal); F14.20 Cocaine dependence, uncomplicated; F31.5 Bipolar disorder, current episode depressed, severe, with psychotic features; R45.851 Suicidal ideations; F41.8 Other specified anxiety disorders; F12.20 Cannabis dependence, uncomplicated; Z88.0 Allergy status to penicillin

== ENCOUNTER 2017-11-07 09:30 | Emergency (ER) | payer MEDICARE, OTHER ==
[2017-11-07 09:42] VITALS: RESP 18; TEMP 98; O2SAT 98; BMI 25.6
--- NOTE | 2017-11-07 09:47 | C.PDOC ---
History Of Present Illness 52 Y/O FEMALE PRESENTS TO ED REQUESTING NARCOTIC DETOX. LAST USE TODAY. PATIENT DENIES OTHER DRUG USE, ETOH. NO SI/SA OR HI. NO OTHER COMPLAINTS AT THIS TIME. EXAM NAD PSYCH CALM COOPERATIVE NO ACUTE INTOX/WIDHRAWAL REMAINDER NEG Time Seen by Provider: 11/07/17 09:44 Chief Complaint (Nursing): Substance Abuse History Per: Patient History/Exam Limitations: no limitations Onset/Duration Of Symptoms: Days Current Symptoms Are (Timing): Still Present Suicide/Self Injury Attempted (Context): None Modifying Factor(s): Narcotics Associated Symptoms: denies: Suicidal Thoughts, Suicidal Plan Past Medical History Reviewed: Historical Data, Nursing Documentation, Vital Signs Vital Signs: Last Vital Signs Temp 98.0 F 11/07/17 09:32 Pulse 72 11/07/17 09:32 Resp 18 11/07/17 09:32 BP 108/66 11/07/17 09:32 Pulse Ox 98 11/07/17 11:34 - Medical History PMH: Arthritis, Asthma, Bipolar Disorder, Depression, HTN, Schizophrenia Surgical History: - [facility] Procedures DETOXIFICATION SERVICES FOR SUBSTANCE ABUSE TREATMENT (10/25/17) GROUP AERIAL SURVEY TECHNICIAN FOR SUBSTANCE ABUSE TREATMENT, PSYCHOEDUCATION (10/25/17) GROUP AERIAL SURVEY TECHNICIAN FOR SUBSTANCE ABUSE, COGNITIVE BEHAVIORAL (10/25/17) GROUP PSYCHOTHERAPY (10/25/17) INDIV PSYCHOTHERAPY FOR SUBSTANCE ABUSE TREATMENT, SUPPORT (10/25/17) INDIV PSYCHOTHERAPY FOR SUBSTANCE ABUSE, COGNITIV BEHAVIORAL (10/25/17) INDIV PSYCHOTHERAPY FOR SUBSTANCE ABUSE, PSYCHOEDUCATION (10/25/17) INDIVIDUAL PSYCHOTHERAPY, COGNITIVE-BEHAVIORAL (10/25/17) INDIVIDUAL PSYCHOTHERAPY, SUPPORTIVE (10/25/17) Family History: States: No Known Family Hx - Social History Hx Alcohol Use: Yes Hx Substance Use: Yes (dope, cocaine, weed) - Immunization History Hx Tetanus Toxoid Vaccination: No Hx Influenza Vaccination: No Hx Pneumococcal Vaccination: No Review Of Systems Constitutional: Negative for: Fever, Chills Cardiovascular: Negative for: Chest Pain Respiratory: Negative for: Shortness of Breath Skin: Negative for: Rash Psych: Negative for: Suicidal ideation, Withdrawal Physical Exam - Physical Exam Appears: Non-toxic, No Acute Distress Skin: Warm, Dry, No Rash Head: Atraumatic, Normacephalic Eye(s): bilateral: Normal Inspection Oral Mucosa: Moist Neck: Normal ROM, Supple Cardiovascular: Rhythm Regular Respiratory: Normal Breath Sounds, No Rales, No Rhonchi, No Wheezing Gastrointestinal/Abdominal: Soft, No Tenderness, No Guarding, No Rebound Extremity: Normal ROM, Capillary Refill (<2 seconds) Neurological/Psych: Oriented x3, Normal Speech, Normal Cognition, Other ( Cooperative, calm. +Intox/Withdrawal ) ED Course And Treatment - Laboratory Results Result Diagrams: 11/07/17 10:35 11/07/17 10:35 O2 Sat by Pulse Oximetry: 98 (RA) Pulse Ox Interpretation: Normal Progress - Re-Evaluation Re-evaluation Note: 11/07/17 11:33 EXAM [facility] CLEAR FOR DETOX. CRISIS NOTIFIED 11/07/17 11:35 D/W CRISIS: RECENT DC FROM PSYCH SP D/W DR HERNÁNDEZ. PT NOT CANDIDATE DETOX ADMISSION DUE TO RECENT PSYCH DC. CLEARED FOR OUTPT FU - Data Reviewed Data Reviewed: Lab, Diagnostic imaging, Old records Disposition Counseled Patient/Family Regarding: Studies Performed, Diagnosis, Need For Followup - Disposition Referrals: [facility] [Provider Group] Disposition: HOME/ ROUTINE Disposition Time: 11:38 Condition: GOOD Instructions: Polysubstance Abuse (DC) Forms: [facility] (Ethiopian) - Clinical Impression Clinical Impression: Drug abuse - Scribe Statement The provider has reviewed the documentation as recorded by the Scribjamal Grossman All medical record entries made by the Scribe were at my direction and personally dictated by me. I have reviewed the chart and agree that the record accurately reflects my personal performance of the history, physical exam, medical decision making, and the department course for this patient. I have also personally directed, reviewed, and agree with the discharge instructions and disposition.
[2017-11-07 10:39] LABS: BASO % 0.6 % (0.0-2.0); EOS # 0.1 K/uL (0.0-0.7); EOS % 1.2 % (0.0-4.0); HEMOGLOBIN 11.3 g/dL (11.0-16.0); LYMPH # 1.2 K/uL (1.0-4.3); LYMPH % 24.6 % (20.0-40.0); MEAN CELL VOLUME 93.8 fL (81.0-99.0); MEAN CORPUSCULAR HEMOGLOBIN 32.3 pg (27.0-31.0); MEAN CORPUSCULAR HGB CONC 34.4 g/dL (33.0-37.0); MEAN PLATELET VOLUME 8.1 fL (7.2-11.7); MONO # 0.5 K/uL (0.0-0.8); MONO % 10.6 % (0.0-10.0); RBC 3.49 Mil/uL (3.80-5.20); WHITE BLOOD COUNT 4.8 K/uL (4.8-10.8)
[2017-11-07 10:49] LABS: SQUAMOUS EPITHIAL 4 /hpf (0-5); URINE BACTERIA RARE (<OCC); URINE BILIRUBIN NEGATIVE (NEGATIVE); URINE BLOOD 1+ (NEGATIVE); URINE CLARITY Hazy (Clear); URINE COLOR Yellow (YELLOW); URINE GLUCOSE (UA) NORMAL (Normal); URINE LEUKOCYTE ESTERASE TRACE Leu/uL (Negative); URINE PROTEIN NEGATIVE (NEGATIVE)
[2017-11-07 10:59] LABS: ALB/GLOB RATIO 1.3 (1.0-2.1); ALBUMIN 3.7 g/dL (3.5-5.0); ALT/SGPT 35 U/L (9-52); AST/SGOT 26 U/L (14-36); BLOOD UREA NITROGEN 18 mg/dL (7-17); CALCIUM 8.8 mg/dl (8.6-10.4); GFR AFRICAN-AMERICAN > 60; GFR NON-AFRICAN AMERICAN > 60
[2017-11-07 11:07] LABS: BARBITURATES, UR NEGATIVE (NEGATIVE); OPIATES, UR NEGATIVE (NEGATIVE); PHENCYCLIDINE, UR NEGATIVE (NEGATIVE)
[2017-11-07 11:33] LABS: BENZODIAZEPINES, UR POSITIVE (NEGATIVE)
[2017-11-07 11:59] VITALS: BP 112/76; PULSE 76
== END 2017-11-07 12:05 | disposition home or self-care (01) ==
LOC: C.ER 09:30
DX: F19.10 Other psychoactive substance abuse, uncomplicated (principal); F31.9 Bipolar disorder, unspecified; F20.9 Schizophrenia, unspecified; I10 Essential (primary) hypertension; F17.210 Nicotine dependence, cigarettes, uncomplicated
CPT/HCPCS: 80053; 81001; 85025; 99284; G0480

== ENCOUNTER 2017-12-01 12:54 | Emergency (ER) | payer MEDICARE, OTHER ==
[2017-12-01 12:54] VITALS: BMI 25.6
[2017-12-01 13:20] VITALS: BP 109/69; PULSE 67; TEMP 98.6; O2SAT 100
--- NOTE | 2017-12-01 13:28 | C.PDOC ---
History Of Present Illness 52 year old female presents to the ER requesting proof of medical evaluation. Patient states "long term kicked me out because I didn't want to take my BP meds" . She notes the medicine makes her sleepy "and I have to be alert while I am in the long term". Denies associated chest pain, headache, or other symptoms. Patient reports "I feel fine" and notes she took her clonidine at 0900. REQUESTING PROOF OF MEDICAL EVALUATION. PS "ALF KICKED ME OUT BECAUSE I DIDN 'T WANT TO TAKE MY BP MEDS". PS MEDICINE MAKES HER SLEEPY "AND I HAVE TO BE ALERT WHILE I AM IN THE ALF". DENIES ASSOC CP, HERNANDEZ OR OTHER SX "I FEEL FINE. " PS TOOK CLONIDINE @ 0900 EXAM NEG Time Seen by Provider: 12/01/17 13:22 Chief Complaint (Nursing): Medical Clearance History Per: Patient History/Exam Limitations: no limitations Onset/Duration Of Symptoms: Hrs Current Symptoms Are (Timing): Still Present Recent travel outside of the [place]: No Past Medical History Reviewed: Historical Data, Nursing Documentation, Vital Signs Vital Signs: Last Vital Signs Temp 98.6 F 12/01/17 13:16 Pulse 67 12/01/17 13:16 Resp 18 12/01/17 13:57 BP 109/69 12/01/17 13:16 Pulse Ox 100 12/01/17 13:30 - Medical History PMH: Arthritis, Asthma, Bipolar Disorder, Depression, HTN, Schizophrenia Surgical History: - [facility] Procedures DETOXIFICATION SERVICES FOR SUBSTANCE ABUSE TREATMENT (10/25/17) GROUP HEALTHCARE ACCOUNT MANAGER FOR SUBSTANCE ABUSE TREATMENT, PSYCHOEDUCATION (10/25/17) GROUP HEALTHCARE ACCOUNT MANAGER FOR SUBSTANCE ABUSE, COGNITIVE BEHAVIORAL (10/25/17) GROUP PSYCHOTHERAPY (10/25/17) INDIV PSYCHOTHERAPY FOR SUBSTANCE ABUSE TREATMENT, SUPPORT (10/25/17) INDIV PSYCHOTHERAPY FOR SUBSTANCE ABUSE, COGNITIV BEHAVIORAL (10/25/17) INDIV PSYCHOTHERAPY FOR SUBSTANCE ABUSE, PSYCHOEDUCATION (10/25/17) INDIVIDUAL PSYCHOTHERAPY, COGNITIVE-BEHAVIORAL (10/25/17) INDIVIDUAL PSYCHOTHERAPY, SUPPORTIVE (10/25/17) Family History: States: Unknown Family Hx - Social History Hx Alcohol Use: Yes Hx Substance Use: Yes - Immunization History Hx Tetanus Toxoid Vaccination: No Hx Influenza Vaccination: No Hx Pneumococcal Vaccination: No Review Of Systems Except As Marked, All Systems Reviewed And Found Negative. Physical Exam - Physical Exam Appears: Non-toxic, No Acute Distress Skin: Normal Color, Warm, Dry Head: Atraumatic, Normacephalic Eye(s): bilateral: Normal Inspection Oral Mucosa: Moist Neck: Normal, Supple Chest: Symmetrical, No Tenderness Cardiovascular: Rhythm Regular Respiratory: Normal Breath Sounds, No Rales, No Rhonchi, No Wheezing Gastrointestinal/Abdominal: Soft, No Tenderness Back: No CVA Tenderness Extremity: Normal ROM (x4) Neurological/Psych: Oriented x3, Normal Speech Gait: Steady ED Course And Treatment O2 Sat by Pulse Oximetry: 100 (Room air) Pulse Ox Interpretation: Normal Disposition Counseled Patient/Family Regarding: Diagnosis, Need For Followup - Disposition Referrals: YOUR,PMD [Other] Disposition: HOME/ ROUTINE Disposition Time: 13:28 Condition: GOOD Instructions: High Blood Pressure (DC) Forms: [facility] (Venezuelan) - Clinical Impression Clinical Impression: Medical assessment, Hypertension - Scribe Statement The provider has reviewed the documentation as recorded by the Scribjamal Vargas All medical record entries made by the Scribe were at my direction and personally dictated by me. I have reviewed the chart and agree that the record accurately reflects my personal performance of the history, physical exam, medical decision making, and the department course for this patient. I have also personally directed, reviewed, and agree with the discharge instructions and disposition.
[2017-12-01 13:58] VITALS: RESP 18
== END 2017-12-01 13:57 | disposition home or self-care (01) ==
LOC: C.ER 12:54
DX: Z04.8 Encounter for examination and observation for other specified reasons (principal); I10 Essential (primary) hypertension; F17.210 Nicotine dependence, cigarettes, uncomplicated

== ENCOUNTER 2018-07-03 22:18 | Emergency (ER) | payer MEDICAID, OTHER ==
[2018-07-03 22:19] VITALS: BMI 25.6
[2018-07-03 22:28] VITALS: BP 139/81; PULSE 85; RESP 16; TEMP 98; O2SAT 96
--- NOTE | 2018-07-03 23:02 | C.PDOC ---
History Of Present Illness Patient presents to the ER requesting a sandwich. Patient initially said she was nauseous but was eating candy in triage. Patient no longer nauseous, states that was earlier today, only wants a sandwich now. Denies other complaints at this time. Time Seen by Provider: 07/03/18 23:02 Chief Complaint (Nursing): GI Problem History Per: Patient History/Exam Limitations: no limitations Onset/Duration Of Symptoms: Mins Current Symptoms Are (Timing): Gone Severity: None Pain Scale Rating Of: 0 Recent travel outside of the [place]: No Past Medical History Reviewed: Historical Data, Nursing Documentation, Vital Signs Vital Signs: Last Vital Signs Temp 98.0 F 07/03/18 22:25 Pulse 85 07/03/18 22:25 Resp 16 07/03/18 22:25 BP 139/81 07/03/18 22:25 Pulse Ox 96 07/03/18 22:25 - Medical History PMH: Arthritis, Asthma, Bipolar Disorder, Depression, HTN, Schizophrenia Denies: Diabetes, Hepatitis, HIV, Chronic Kidney Disease, Seizures, Sexually Transmitted Disease Surgical History: - [facility] Procedures DETOXIFICATION SERVICES FOR SUBSTANCE ABUSE TREATMENT (10/25/17) GROUP VP LAB FOR SUBSTANCE ABUSE TREATMENT, PSYCHOEDUCATION (10/25/17) GROUP VP LAB FOR SUBSTANCE ABUSE, COGNITIVE BEHAVIORAL (10/25/17) GROUP PSYCHOTHERAPY (10/25/17) INDIV PSYCHOTHERAPY FOR SUBSTANCE ABUSE TREATMENT, SUPPORT (10/25/17) INDIV PSYCHOTHERAPY FOR SUBSTANCE ABUSE, COGNITIV BEHAVIORAL (10/25/17) INDIV PSYCHOTHERAPY FOR SUBSTANCE ABUSE, PSYCHOEDUCATION (10/25/17) INDIVIDUAL PSYCHOTHERAPY, COGNITIVE-BEHAVIORAL (10/25/17) INDIVIDUAL PSYCHOTHERAPY, SUPPORTIVE (01/27/18) Family History: States: No Known Family Hx - Social History Hx Alcohol Use: Yes Hx Substance Use: Yes - Immunization History Hx Tetanus Toxoid Vaccination: No Hx Influenza Vaccination: No Hx Pneumococcal Vaccination: No Review Of Systems Constitutional: Negative for: Fever, Chills Cardiovascular: Negative for: Chest Pain, Palpitations Respiratory: Negative for: Cough, Shortness of Breath Gastrointestinal: Negative for: Nausea, Vomiting Neurological: Negative for: Weakness, Numbness Physical Exam - Physical Exam Appears: Non-toxic, Other (Obese) Skin: Warm, Dry Head: Normacephalic Oral Mucosa: Moist Chest: Symmetrical, No Tenderness Cardiovascular: Rhythm Regular Respiratory: No Rales, No Rhonchi, No Wheezing Gastrointestinal/Abdominal: Soft, No Tenderness Neurological/Psych: Oriented x3 Gait: Steady ED Course And Treatment O2 Sat by Pulse Oximetry: 96 Disposition Counseled Patient/Family Regarding: Studies Performed, Diagnosis, Need For Followup - Disposition Referrals: [facility] [Outside] Disposition: HOME/ ROUTINE Disposition Time: 23:02 Condition: FAIR Prescriptions: Ondansetron ODT [Zofran ODT] 1 odt PO BID PRN #6 odt PRN Reason: Nausea/Vomiting Instructions: Nausea and Vomiting, Adult (DC) Forms: [email or web address] (Lithuanian), General Discharge Instructions - Clinical Impression Clinical Impression: Nausea - Scribe Statement The provider has reviewed the documentation as recorded by the Scribe Kaiser Vargas All medical record entries made by the Scribe were at my direction and personally dictated by me. I have reviewed the chart and agree that the record accurately reflects my personal performance of the history, physical exam, medical decision making, and the department course for this patient. I have also personally directed, reviewed, and agree with the discharge instructions and disposition.
== END 2018-07-03 23:45 | disposition home or self-care (01) ==
LOC: C.ER 22:18
DX: R11.0 Nausea (principal); F20.9 Schizophrenia, unspecified; I10 Essential (primary) hypertension

== ENCOUNTER 2018-07-30 07:08 | Emergency (ER) | payer MEDICARE, MEDICAID ==
[2018-07-30 07:08] VITALS: BMI 25.6
[2018-07-30 07:22] VITALS: BP 145/93; PULSE 77; RESP 19; TEMP 97.9; O2SAT 97
--- NOTE | 2018-07-30 07:53 | C.PDOC ---
History Of Present Illness 52 year old female, whose past medical history includes schizophrenia and bipolar disorder, presents to the ED for evaluation of left breast pain which began two days ago. Patent states she underwent a mammogram one month, which was abnormal but she has not yet followed up. Patient reports a rash to her left breast that is itchy. She denies rash elsewhere. She denies fever, chills, skin changes over breast, nipple discharge, chest pain and shortness of breath at this time. Time Seen by Provider: 07/30/18 07:26 Chief Complaint (Nursing): Abnormal Skin Integrity History Per: Patient History/Exam Limitations: no limitations Onset/Duration Of Symptoms: Days (2) Current Symptoms Are (Timing): Still Present Location Of Injury: Left: Chest (breast ) Quality Of Symptoms: Painful, Itching Additional History Per: Patient Past Medical History Reviewed: Historical Data, Nursing Documentation, Vital Signs Vital Signs: Last Vital Signs Temp 97.9 F 07/30/18 07:14 Pulse 77 07/30/18 07:14 Resp 19 07/30/18 07:14 BP 145/93 H 07/30/18 07:14 Pulse Ox 97 07/30/18 07:14 - Medical History PMH: Arthritis, Asthma, Bipolar Disorder, Depression, HTN, Schizophrenia Denies: Diabetes, Hepatitis, HIV, Chronic Kidney Disease, Seizures, Sexually Transmitted Disease Surgical History: - [facility] Procedures DETOXIFICATION SERVICES FOR SUBSTANCE ABUSE TREATMENT (10/25/17) GROUP DETAIL MANAGER FOR SUBSTANCE ABUSE TREATMENT, PSYCHOEDUCATION (10/25/17) GROUP DETAIL MANAGER FOR SUBSTANCE ABUSE, COGNITIVE BEHAVIORAL (10/25/17) GROUP PSYCHOTHERAPY (10/25/17) INDIV PSYCHOTHERAPY FOR SUBSTANCE ABUSE TREATMENT, SUPPORT (10/25/17) INDIV PSYCHOTHERAPY FOR SUBSTANCE ABUSE, COGNITIV BEHAVIORAL (10/25/17) INDIV PSYCHOTHERAPY FOR SUBSTANCE ABUSE, PSYCHOEDUCATION (10/25/17) INDIVIDUAL PSYCHOTHERAPY, COGNITIVE-BEHAVIORAL (10/25/17) INDIVIDUAL PSYCHOTHERAPY, SUPPORTIVE (01/27/18) Family History: States: Unknown Family Hx - Social History Hx Alcohol Use: Yes Hx Substance Use: No - Immunization History Hx Tetanus Toxoid Vaccination: No Hx Influenza Vaccination: Yes Hx Pneumococcal Vaccination: No Review Of Systems Constitutional: Negative for: Fever, Chills Cardiovascular: Negative for: Chest Pain Respiratory: Negative for: Shortness of Breath Skin: Positive for: Rash (itchy rash to left breast). Negative for: Other (nipple discharge ) Physical Exam - Physical Exam Appears: Non-toxic, No Acute Distress Skin: Normal Color, Warm, Dry, Other (skin over left breast: no discharge from nipple, no skin changes, no signs of induration, small scab noted to left breast ) Head: Atraumatic, Normacephalic Eye(s): bilateral: Normal Inspection Oral Mucosa: Moist Neck: Supple Lymphatic: No Adenopathy, No Axilla Node Tenderness Chest: Symmetrical, No Deformity, No Tenderness Cardiovascular: Rhythm Regular, No Murmur Respiratory: Normal Breath Sounds, No Rales, No Rhonchi, No Wheezing Extremity: Normal ROM, Capillary Refill (less than 2 seconds) Neurological/Psych: Oriented x3, Normal Speech, Normal Cognition ED Course And Treatment O2 Sat by Pulse Oximetry: 97 (on RA) Pulse Ox Interpretation: Normal Medical Decision Making Medical Decision Making: Patient instructed to f/u re her mammogram and to RTED for new, worsening or concerning symptoms. Patient is agreeable w/POC and is stable for d/c home. Disposition Counseled Patient/Family Regarding: Diagnosis, Need For Followup - Disposition Referrals: [facility] [Outside] [facility] [Outside] Demond Arriola MD [Staff Provider] - Disposition: HOME/ ROUTINE Disposition Time: 07:53 Condition: STABLE Instructions: Mastalgia (DC) Forms: [facility] (Romanian), General Discharge Instructions - POA Present On Arrival: None - Clinical Impression Clinical Impression: Breast pain - Scribe Statement The provider has reviewed the documentation as recorded by the Scribe (Sho Rey) Provider Attestation: All medical record entries made by the Scribe were at my direction and personally dictated by me. I have reviewed the chart and agree that the record accurately reflects my personal performance of the history, physical exam, medical decision making, and the department course for this patient. I have also personally directed, reviewed, and agree with the discharge instructions and disposition.
== END 2018-07-30 08:00 | disposition home or self-care (01) ==
LOC: C.ER 07:08
DX: N64.4 Mastodynia (principal); I10 Essential (primary) hypertension; F20.9 Schizophrenia, unspecified

== ENCOUNTER 2018-09-05 07:57 | Emergency (ER) | payer MEDICARE, MEDICAID ==
[2018-09-05 07:57] VITALS: BMI 25.6
[2018-09-05 08:05] VITALS: TEMP 97.9; O2SAT 99
--- NOTE | 2018-09-05 08:33 | C.PDOC ---
History Of Present Illness Patient is a 53 year old female with pmhx of asthma, HTN, bipolar, schizophrenia who presents to day to ED from custodial with complaints of fevers/chills, productive cough of yellow/green sputum, congestion, nausea, post prandial emesis for 3 weeks. Patient reports many residents at the custodial have been ill. Patient reports non-compliance with home medications and followup. Denies chest pain, SOB, wheezing, diarrhea. <Elizabeth Cleary - Last Filed: 09/05/18 09:01> History Per: Patient History/Exam Limitations: no limitations Onset/Duration Of Symptoms: Days, Persistent Current Symptoms Are (Timing): Still Present Sick Contacts (Context): Friend(s) Associated Symptoms: Fever, Chills, Cough, Sputum, Myalgias, Nasal Congestion, Nausea, Vomiting Ear Symptoms: Bilateral: None <Elizabeth Cleary - Last Filed: 09/05/18 09:01> <Riley Odom DO - Last Filed: 09/05/18 18:38> Time Seen by Provider: 09/05/18 08:07 Chief Complaint (Nursing): Cough, Cold, Congestion Past Medical History Vital Signs: Last Vital Signs Temp 97.9 F 09/05/18 08:01 Pulse 88 09/05/18 08:01 Resp 20 09/05/18 08:01 BP 156/103 H 09/05/18 08:01 Pulse Ox 99 09/05/18 08:01 - Medical History PMH: Arthritis, Asthma, Bipolar Disorder, Depression, HTN, Schizophrenia Denies: Diabetes, Hepatitis, HIV, Chronic Kidney Disease, Seizures, Sexually Transmitted Disease Surgical History: - [facility] Procedures DETOXIFICATION SERVICES FOR SUBSTANCE ABUSE TREATMENT (10/25/17) GROUP STOCK CUTTER FOR SUBSTANCE ABUSE TREATMENT, PSYCHOEDUCATION (10/25/17) GROUP STOCK CUTTER FOR SUBSTANCE ABUSE, COGNITIVE BEHAVIORAL (10/25/17) GROUP PSYCHOTHERAPY (10/25/17) INDIV PSYCHOTHERAPY FOR SUBSTANCE ABUSE TREATMENT, SUPPORT (10/25/17) INDIV PSYCHOTHERAPY FOR SUBSTANCE ABUSE, COGNITIV BEHAVIORAL (10/25/17) INDIV PSYCHOTHERAPY FOR SUBSTANCE ABUSE, PSYCHOEDUCATION (10/25/17) INDIVIDUAL PSYCHOTHERAPY, COGNITIVE-BEHAVIORAL (10/25/17) INDIVIDUAL PSYCHOTHERAPY, SUPPORTIVE (01/27/18) Family History: States: Unknown Family Hx - Social History Hx Tobacco Use: Yes Hx Alcohol Use: Yes Hx Substance Use: No - Immunization History Hx Tetanus Toxoid Vaccination: No Hx Influenza Vaccination: Yes (2018) Hx Pneumococcal Vaccination: No <EvinElizabeth - Last Filed: 09/05/18 09:01> Vital Signs: Last Vital Signs Temp 97.9 F 09/05/18 08:01 Pulse 68 09/05/18 09:10 Resp 18 09/05/18 09:10 BP 147/85 09/05/18 09:10 Pulse Ox 99 09/05/18 09:10 - [facility] Procedures DETOXIFICATION SERVICES FOR SUBSTANCE ABUSE TREATMENT (10/25/17) GROUP STOCK CUTTER FOR SUBSTANCE ABUSE TREATMENT, PSYCHOEDUCATION (10/25/17) GROUP STOCK CUTTER FOR SUBSTANCE ABUSE, COGNITIVE BEHAVIORAL (10/25/17) GROUP PSYCHOTHERAPY (10/25/17) INDIV PSYCHOTHERAPY FOR SUBSTANCE ABUSE TREATMENT, SUPPORT (10/25/17) INDIV PSYCHOTHERAPY FOR SUBSTANCE ABUSE, COGNITIV BEHAVIORAL (10/25/17) INDIV PSYCHOTHERAPY FOR SUBSTANCE ABUSE, PSYCHOEDUCATION (10/25/17) INDIVIDUAL PSYCHOTHERAPY, COGNITIVE-BEHAVIORAL (10/25/17) INDIVIDUAL PSYCHOTHERAPY, SUPPORTIVE (01/27/18) <Riley Odom DO - Last Filed: 09/05/18 18:38> Review Of Systems Constitutional: Positive for: Fever, Chills, Weakness ENT: Negative for: Ear Pain Cardiovascular: Negative for: Chest Pain, Palpitations Respiratory: Positive for: Cough, Sputum. Negative for: Shortness of Breath, Hemoptysis, Wheezing Gastrointestinal: Positive for: Nausea, Vomiting. Negative for: Diarrhea <Elizabeth Cleary - Last Filed: 09/05/18 09:01> Physical Exam - Physical Exam Appears: Non-toxic, No Acute Distress Skin: Normal Color, Warm, Dry Eye(s): bilateral: Other (conjunctival injection) Nose: Discharge Oral Mucosa: Moist Throat: Normal Lymphatic: Normal Exam Cardiovascular: Rhythm Regular Respiratory: Rales, No Wheezing Gastrointestinal/Abdominal: Normal Exam, Bowel Sounds, Soft, No Tenderness, No Distention Extremity: No Pedal Edema, No Calf Tenderness Neurological/Psych: Oriented x3 <Elizabeth Cleary - Last Filed: 09/05/18 09:01> ED Course And Treatment O2 Sat by Pulse Oximetry: 99 - Radiology CXR: Viewed By Ma CXR Interpretation: Yes: No Acute Disease <Elizabeth Cleary - Last Filed: 09/05/18 09:01> Medical Decision Making Medical Decision Makin53 year old female with complaints of cough/congestion/vomiting CXR- <Elizabeth Cleary - Last Filed: 09/05/18 09:01> Disposition Counseled Patient/Family Regarding: Studies Performed, Diagnosis, Need For Followup, Rx Given - Disposition Disposition Time: 08:57 - POA Present On Arrival: None <Elizabeth Cleary - Last Filed: 09/05/18 09:01> - Disposition Disposition Time: 08:50 <Lei WASSERMANRiley - Last Filed: 09/05/18 18:38> - Disposition Disposition: HOME/ ROUTINE Condition: GOOD Additional Instructions: JIMMIE AHMADI, thank you for letting us take care of you today. The emergency medical care you received today was directed at your acute symptoms. If you were prescribed any medication, please fill it and take as directed. It may take several days for your symptoms to resolve. Return to the Emergency Department if your symptoms worsen, do not improve, or if you have any other problems. Please contact your doctor or call one of the physicians/clinics you have been referred to that are listed on the Patient Visit Information form that is included in your discharge packet. Bring any paperwork you were given at discharge with you along with any medications you are taking to your follow up visit. Our treatment cannot replace ongoing medical care by a primary care provider outside of the emergency department. Thank you for allowing the [facility] team to be part of your care today. Follow up with your primary care doctor in 5-7 days for re-evaluation and further management. Prescriptions: Cetirizine HCl [Zyrtec] 10 mg PO DAILY #30 capsule Instructions: Upper Respiratory Infection (ED) Forms: [employer] (Taiwanese) - Clinical Impression Clinical Impression: Viral disease, Hypertension - PA / HONEY BLENDER / Resident Statement / has reviewed & agrees with the documentation as recorded. / has examined the patient and agrees with the treatment plan. <Riley Odom DO - Last Filed: 09/05/18 18:38>
[2018-09-05 09:31] VITALS: BP 147/85; PULSE 68; RESP 18
--- NOTE | 2018-09-05 10:09 | RAD ---
Date of service: 09/05/2018 HISTORY: cough/congestion COMPARISON: 01/27/2018 TECHNIQUE: Chest PA and lateral views FINDINGS: LUNGS: Current inspiration greater now. No consolidative infiltrate seen. PLEURA: No significant pleural effusion identified. No pneumothorax apparent. CARDIOVASCULAR: No aortic atherosclerotic calcification present. Borderline cardiomegaly-similar No significant appearing pulmonary venous congestion. OSSEOUS STRUCTURES: No significant abnormalities. VISUALIZED UPPER ABDOMEN: Normal. OTHER FINDINGS: None. IMPRESSION: No interval active disease. Other findings as above.
== END 2018-09-05 09:11 | disposition home or self-care (01) ==
LOC: C.ER 07:57
DX: B34.9 Viral infection, unspecified (principal); I10 Essential (primary) hypertension; F20.9 Schizophrenia, unspecified; F31.9 Bipolar disorder, unspecified; Z72.0 Tobacco use

== ENCOUNTER 2018-09-18 20:15 | Inpatient (IN) | payer MEDICARE, MEDICAID ==
[2018-09-18 20:16] VITALS: BMI 25.6
--- NOTE | 2018-09-18 21:01 | C.PDOC ---
History Of Present Illness 53-year-old female, whose past medical history includes bipolar disorder, schizophrenia and substance abuse, presents to the ED for psychiatric evaluation. Patient states she has been hearing voices that are telling her to hurt other people. She reports wanting to stab others and mixing poison into their drinks. Patient has not made any attempts. Patient states she has been noncompliant with her psychiatric medications for months, and is unable to recall names of any specific medications. She denies suicidal ideation/plan at this time. Time Seen by Provider: 09/18/18 20:28 Chief Complaint (Nursing): Psychiatric Evaluation History Per: Patient History/Exam Limitations: no limitations Onset/Duration Of Symptoms: Days Current Symptoms Are (Timing): Still Present Suicide/Self Injury Attempted (Context): None Associated Symptoms: Other (homicidal ideation and plan ). denies: Suicidal Thoughts, Suicidal Plan Involuntary Hold By: None Recent travel outside of the [place]: No Additional History Per: Patient Past Medical History Reviewed: Historical Data, Nursing Documentation, Vital Signs Vital Signs: Last Vital Signs Temp 98.2 F 09/18/18 20:25 Pulse 87 09/18/18 20:25 Resp 16 09/18/18 20:25 BP 132/87 09/18/18 20:25 Pulse Ox 98 09/18/18 20:25 - Medical History PMH: Arthritis, Asthma, Bipolar Disorder, Depression, HTN, Schizophrenia Denies: Diabetes, Hepatitis, HIV, Chronic Kidney Disease, Seizures, Sexually Transmitted Disease Surgical History: - [facility] DETOXIFICATION SERVICES FOR SUBSTANCE ABUSE TREATMENT (10/25/17) GROUP COUNTERINTELLIGENCE AGENT FOR SUBSTANCE ABUSE TREATMENT, PSYCHOEDUCATION (10/25/17) GROUP COUNTERINTELLIGENCE AGENT FOR SUBSTANCE ABUSE, COGNITIVE BEHAVIORAL (10/25/17) GROUP PSYCHOTHERAPY (10/25/17) INDIV PSYCHOTHERAPY FOR SUBSTANCE ABUSE TREATMENT, SUPPORT (10/25/17) INDIV PSYCHOTHERAPY FOR SUBSTANCE ABUSE, COGNITIV BEHAVIORAL (10/25/17) INDIV PSYCHOTHERAPY FOR SUBSTANCE ABUSE, PSYCHOEDUCATION (10/25/17) INDIVIDUAL PSYCHOTHERAPY, COGNITIVE-BEHAVIORAL (10/25/17) INDIVIDUAL PSYCHOTHERAPY, SUPPORTIVE (01/27/18) Family History: States: Unknown Family Hx - Social History Hx Tobacco Use: Yes Hx Alcohol Use: No Hx Substance Use: No - Immunization History Hx Tetanus Toxoid Vaccination: No Hx Influenza Vaccination: Yes (2018) Hx Pneumococcal Vaccination: No Review Of Systems Psych: Positive for: Other (homicidal ideation, auditory hallucinations ). Negative for: Suicidal ideation Physical Exam - Physical Exam Appears: Non-toxic, No Acute Distress Skin: Normal Color, Warm, Dry Head: Atraumatic, Normacephalic Eye(s): bilateral: Normal Inspection Oral Mucosa: Moist Neck: Supple Chest: Symmetrical, No Deformity, No Tenderness Cardiovascular: Rhythm Regular, No Murmur Respiratory: Normal Breath Sounds, No Rales, No Rhonchi, No Wheezing Extremity: Normal ROM Neurological/Psych: Oriented x3, Normal Speech, Normal Cognition ED Course And Treatment - Laboratory Results Result Diagrams: 09/18/18 21:50 09/18/18 21:50 Lab Interpretation: No Acute Changes O2 Sat by Pulse Oximetry: 98 (on RA ) Pulse Ox Interpretation: Normal Progress Note: Patient placed on 1:1 ED observation. Reevaluation Time: 22:51 Reassessment Condition: Unchanged (Patient is medically cleared for psychiatric admission.) Disposition - Disposition Disposition: HOSPITALIZED Disposition Time: 22:52 Condition: STABLE - POA Present On Arrival: None - Clinical Impression Clinical Impression: Schizophrenia spectrum disorder with psychotic disorder type not yet determined - Scribe Statement The provider has reviewed the documentation as recorded by the Scribe (Sho Rey) Provider Attestation: All medical record entries made by the Scribe were at my direction and personally dictated by me. I have reviewed the chart and agree that the record accurately reflects my personal performance of the history, physical exam, medical decision making, and the department course for this patient. I have also personally directed, reviewed, and agree with the discharge instructions and disposition.
[2018-09-18 21:55] LABS: BASO % 0.5 % (0.0-2.0); EOS # 0.1 K/uL (0.0-0.7); EOS % 1.9 % (0.0-4.0); HEMOGLOBIN 12.3 g/dL (11.0-16.0); LYMPH # 1.9 K/uL (1.0-4.3); LYMPH % 31.4 % (20.0-40.0); MEAN CELL VOLUME 93.6 fL (81.0-99.0); MEAN CORPUSCULAR HEMOGLOBIN 31.5 pg (27.0-31.0); MEAN CORPUSCULAR HGB CONC 33.6 g/dL (33.0-37.0); MEAN PLATELET VOLUME 8.7 fL (7.2-11.7); MONO # 0.4 K/uL (0.0-0.8); MONO % 7.4 % (0.0-10.0); NEUT # 3.5 K/uL (1.8-7.0); NEUT % 58.8 % (50.0-75.0); RBC 3.91 Mil/uL (3.80-5.20); RED CELL DISTRIBUTION WIDTH 13.7 % (11.5-14.5)
[2018-09-18 22:01] LABS: HCG,QUALITATIVE URINE NEGATIVE (NEGATIVE); SQUAMOUS EPITHIAL 10 /hpf (0-5); URINE BACTERIA OCC (<OCC); URINE BILIRUBIN NEGATIVE (NEGATIVE); URINE BLOOD NEGATIVE (NEGATIVE); URINE CLARITY Hazy (Clear); URINE COLOR Yellow (YELLOW); URINE GLUCOSE (UA) NORMAL (Normal); URINE LEUKOCYTE ESTERASE NEG Leu/uL (Negative); URINE PROTEIN 1+ mg/dL (NEGATIVE)
[2018-09-18 22:10] LABS: ALB/GLOB RATIO 1.4 (1.0-2.1); BLOOD UREA NITROGEN 17 mg/dL (7-17); CALCIUM 8.9 mg/dl (8.6-10.4); GFR NON-AFRICAN AMERICAN > 60
[2018-09-18 22:13] LABS: ALT/SGPT 12 U/L (9-52); AST/SGOT 19 U/L (14-36)
[2018-09-18 22:15] LABS: BARBITURATES, UR NEGATIVE (NEGATIVE); BENZODIAZEPINES, UR NEGATIVE (NEGATIVE); OPIATES, UR NEGATIVE (NEGATIVE); PHENCYCLIDINE, UR NEGATIVE (NEGATIVE)
--- NOTE | 2018-09-19 00:48 | PCM.BM ---
Treatment Plan Problems - Problems identified on initial assessmt Suicidal Ideation Date Initiated: 09/18/18 Time Initiated: 23:30 Assessment reference: NA Status: Monitor Comment: Plan to overdose Command/Auditory Hallucinations Date Initiated: 09/18/18 Time Initiated: 23:30 Assessment reference: NA Status: Active Comment: Auditory hallucinations telling patient to hurt self and others Treatment assets and liabiliti Patient Assests: cooperative, ADL independent, negotiates basic needs Patient Liabilities: live alone (Lives in custodial), financial problems (Unemployed), substance abuse (Cocaine and Marijuana use) - Milieu Protocol Maintain good personal hygiene: daily Encourage regular showers, daily Remind patient to perform daily oral care, every shift Assist patient to perform ADL's Conduct patient checks and document Observation sheet: Q15 minutes Maintain personal safety: every shift Educate patient to report safety concerns to staff, every shift Monitor environment for contraband/sharps Medication safety: Monitor for expected outcome, potential side effects: every shift, Assess barriers to learning: every shift, Assess readiness for medication education: every shift
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
--- NOTE | 2018-09-20 15:42 | PCM.PYCHPN ---
Psychiatric Progress Note - Psychiatric Progress Note Patient seen today, length of contact: 15 minutes Patient Chief Complaint: Feeling less better. Problems Identified/Issues Discussed: Patient seen, chart reviewed, case discussed with the staff. Issues related to illness and treatment were discussed with the patient and staff. Reported compliant with treatment with no adverse effects. Tolerating treatment very well. Patient reported feeling little better. Mood reported as okay. Affect inappropriate. Blunted. Patient needs more time for stabilization. Aftercare discussed with the patient. Denied any delusions, auditory or visual hallucinations, no suicidal ideations or homicidal ideations at the time of evaluation. Medical Problems: Hypertension Diagnostic Results: Reviewed DSM 5 Symptoms Update: Some improvement with treatment from Medication Change: No Medical Record Reviewed: Yes Mental Status Examination - Cognitive Function Orientation: Person, Place, Situation, Time Memory: Intact Attention: WNL Concentration: WNL Association: WNL Fund of Knowledge: WN Decription of patient's judgement and insights: Fair - Mood Mood: Depressed - Affect Affect: Blunted - Speech Speech: Appropriate - Formal Thought Process Formal Thought Process: Loosening of associations, Flight of ideas - Suicidal Ideation Suicidal Ideation: No - Homicidal Ideation Homicidal Ideation: No Goal/Treatment Plan - Goal/Treatment Plan Need for Continued Stay: Remain at risks for inpatient hospitalization, Discharge may exacerbated symptoms, Severe functional impairment Progress Toward Problem(s) and Goals/Treatment Plan: Patient education. Supportive therapy. CBT for relapse prevention. MRI follow-up as needed. Continue treatment as before. Patient is attending [facility], will go back to [facility] after discharge from the hospital for follow-up care. Estimated Date of D/C: 09/26/18 - Smoking Cessation Smoking Cessation Initiated: Yes
--- NOTE | 2018-09-21 23:35 | PCM.PYCHPN ---
Psychiatric Progress Note - Psychiatric Progress Note Patient Chief Complaint: "Sometimes I still hear voices" Problems Identified/Issues Discussed: The pt is seen, chart reviewed, case is discussed with staff. The pt is compliant with medications and reports no side-effects. Symptoms are improving but needs more time to stabilize and to avoid relapse. Pt attends groups and activities. Support given, psycho-education provided. After care discussed. Medication Change: No Medical Record Reviewed: Yes Mental Status Examination - Cognitive Function Orientation: Person, Place, Situation, Time Memory: Intact Attention: WNL Concentration: WNL - Mood Mood: Depressed, Anxious - Affect Affect: Constricted, Depressed - Speech Speech: Appropriate - Formal Thought Process Formal Thought Process: No Impairment - Suicidal Ideation Suicidal Ideation: No - Homicidal Ideation Homicidal Ideation: No Goal/Treatment Plan - Goal/Treatment Plan Progress Toward Problem(s) and Goals/Treatment Plan: Continue medications Support and psychoeducation daily Attend groups and activities daily Individual therapy After care planning by JANAY and the team
[2018-09-22] MEDS ORDERED: Pneumococcal 23-Valent Vaccine IM ONE (10:00)
[2018-09-22] MEDS: Aluminum Hydroxide/Magnesium Hydroxide Susp (30 mL) PO PRN (21:36)
[2018-09-23] MEDS: Aluminum Hydroxide/Magnesium Hydroxide Susp (30 mL) PO PRN ×2 (09:49→21:59)
--- NOTE | 2018-09-23 13:27 | PCM.PYCHPN ---
Psychiatric Progress Note - Psychiatric Progress Note Patient seen today, length of contact: 15 minutes Patient Chief Complaint: My voice are getting little better.' Problems Identified/Issues Discussed: Patient was seen and evaluated, chart reviewed and discussed with the staff. Patient reports some improvement in the mood and paranoia. She reports improvement in the feelings of hopelessness and helplessness. She reports some improvement in the auditory hallucinations and paranoia. She reports some improvement in the sleep and appetite. She is taking medication but denies any side effects. Symptoms are improving gradually but she needs to stay longer for further stabilization. Supportive therapy was given. Medication Change: Yes Medical Record Reviewed: Yes Mental Status Examination - Cognitive Function Orientation: Person, Place, Situation, Time Memory: Intact Attention: WNL Concentration: Poor Association: Loose Fund of Knowledge: Poor - Mood Mood: Depressed, Anxious - Affect Affect: Constricted - Speech Speech: Appropriate - Formal Thought Process Formal Thought Process: Loosening of associations, Flight of ideas - Suicidal Ideation Suicidal Ideation: No - Homicidal Ideation Homicidal Ideation: No Goal/Treatment Plan - Goal/Treatment Plan Need for Continued Stay: Remain at risks for inpatient hospitalization, Discharge may exacerbated symptoms, Severe functional impairment Progress Toward Problem(s) and Goals/Treatment Plan: Bipolar 1 disorder most recent episode depressed Cannabis withdrawal Cannabis use disorder severe Cocaine use disorder severe Opioid use disorder severe in early remission Patient education. Supportive therapy. CBT Risperdal for psychosis Trazodone for insomnia Cogentin for EPS Neurontin for augmentation Patient is attending [facility], will go back to [facility] after discharge from the hospital for follow-up care. Estimated Date of D/C: 09/26/18 - Smoking Cessation Smoking Cessation Initiated: Yes
[2018-09-24 06:44] VITALS: BP 122/79; PULSE 92; RESP 20; TEMP 98.3; O2SAT 95
[2018-09-24] MEDS: Aluminum Hydroxide/Magnesium Hydroxide Susp (30 mL) PO PRN (10:07)
--- NOTE | 2018-09-24 11:13 | PCM.PYCHDC ---
Mental Status Examination - Mental Status Examination Orientation: Person, Place, Situation, Time Memory: Intact Mood: Neutral Affect: Constricted Speech: Soft Attention: WNL Concentration: WNL Association: WNL Fund of Knowledge: WNL Formal Thought Process: No Impairment Description of patient's judgement and insight: good, fair Psychotic Thoughts and Behaviors: denies any AVH Suicidal Ideation: No Current Homicidal Ideation?: No Discharge Summary - Discharge Note Reason for Hospitalization: Patient is a 53 year old, single, unemployed, AAF, lived in assisted, came to the hospital with depressed mood and homicidal ideations to hurt people in random. Patient reported that she was noncompliant with treatment for the last 4 months, ran out of medications, continue using cannabis, started feeling depressed with decreased sleep, gained some weight. Patient reported that he was aggravated by people and then developed homicidal ideations to hurt people in general. He was also delusional that people after her. People started having hallucinations both auditory and visual and also talking to . Patient reported also having suicidal ideations and attempted suicide for about 15 times in the past by overdose on pills and cutting on wrist. Patient was admitted only times at [facility] and at [facility]. Patient has a long history of bipolar disorder. She has been hospitalized more than 20 times in psychiatric units as well as detox. She reports of abusing heroin 7-10 bags, last use reported 5 months ago. Also using cocaine worth $50- 300 daily and 5-10 blunts of cannabis daily, lat used yesterday. Patient has history of 1 . Patient was born in [place], has 8 date of education from special ed. Currently she was living in a assisted. Patient is not working and is on SSD/SSI. Patient reported never and has 10 children all grown up from 1 person. Her height is 5 feet 2 inches and weight is 200 pounds. Consultations:: List each consultation separately and include: 1. Reason for request. 2. Findings. 3. Follow-up Summary of Hospital Course include:: 1. Description of specific treatment plan utilized for patients during their course of treatmen. 2. Summarize the time- course for resolution of acute symptoms and/or regressed behaviors. 3. Describe issues identified and worked on during hospitalization. 4. Describe medication utilized. 5. Describe medical problems identified and treated. 6. Reassessment of suicide risk - Final Diagnosis (DSM 5) Condition upon Discharge: STABLE DSM 5: Bipolar 1 disorder most recent episode depressed Cannabis withdrawal Cannabis use disorder severe Cocaine use disorder severe Opioid use disorder severe in early remission Disposition: HOME/ ROUTINE Follow-up Treatment Plan: Bipolar 1 disorder most recent episode depressed Cannabis withdrawal Cannabis use disorder severe Cocaine use disorder severe Opioid use disorder severe in early remission Patient education. Supportive therapy. CBT Risperdal for psychosis Trazodone for insomnia Cogentin for EPS Neurontin for augmentation Patient is attending [facility], will go back to [facility] after discharge from the hospital for follow-up care. Prescriptions/Medication Reconciliation: amLODIPine [Norvasc] 10 mg PO DAILY #30 tab Gabapentin [Neurontin] 100 mg PO BID #60 cap Mirtazapine [Remeron] 15 mg PO HS #30 tab risperiDONE [RisperDAL Tab] 3 mg PO HS #30 tab traZODone [Desyrel] 50 mg PO HS PRN #30 tab PRN Reason: Sleep
== END 2018-09-24 12:00 | disposition home or self-care (01) | DRG 885 ==
LOC: C.ER 20:15 → C.9E 22:52 → C.5E 23:15
PROC: GZ56ZZZ Individual Psychotherapy, Supportive (ICD-10-PCS; principal; 2018-09-18)
DX: F31.9 Bipolar disorder, unspecified (principal); G47.00 Insomnia, unspecified; I10 Essential (primary) hypertension; J45.909 Unspecified asthma, uncomplicated; Z87.891 Personal history of nicotine dependence; Z91.14 Patient's other noncompliance with medication regimen; F11.21 Opioid dependence, in remission; F12.23 Cannabis dependence with withdrawal; F14.10 Cocaine abuse, uncomplicated